=== PATIENT | female | born 1955 | race Caucasian/White ===

== ENCOUNTER → 2022-02-25 12:06 | Outpatient (CLI) | payer MEDICARE, OTHER, SELFPAY ==
--- NOTE | 2022-02-25 12:19 | DI.RAD.S_ITS ---
PROCEDURE: XR CHEST 2V INDICATIONS: SHORT OF BREATH TECHNIQUE: 2 views of the chest were acquired. COMPARISON: [facility], , CHEST 1 VIEW, 03/03/2017, 11:17. FINDINGS: Surgical changes and devices: There is a right Port-A-Cath, the tip of which is projected over the lower SVC. Lungs and pleura: There is a moderate-sized right sub pulmonic effusion. Fluid is also visualized within the horizontal fissure. There is likely compressive atelectasis or consolidation at the right lung base. The left lung is clear. Mediastinum: Mediastinal contours are normal. Heart size is normal. Bones and chest wall: No suspicious bony abnormalities. Soft tissues appear unremarkable. IMPRESSION: Right pleural effusion with consolidation or atelectasis at the right lung base. Dictated by: Linda Hernandez M.D. on 02/25/2022 at 13:16 Approved by: Linda Hernandez M.D. on 02/25/2022 at 13:17
== END ==
PROVIDERS: PCP Internal Medicine; Referring Provider Obstetrics & Gynecology Gynecologic Oncology; Visit Provider Obstetrics & Gynecology Gynecologic Oncology
DX: C56.3 Malignant neoplasm of bilateral ovaries (principal); R06.02 Shortness of breath; J90 Pleural effusion, not elsewhere classified
CPT/HCPCS: 71046

== ENCOUNTER 2023-02-18 15:36 | Inpatient (IN) | payer MEDICARE, OTHER, SELFPAY ==
[2023-02-18] VITALS (28 sets, daily range): BP systolic 92–150; BP diastolic 64–86; PULSE 84–120; RESP 15–29; TEMP 36.1–36.9; O2SAT 79–100; BMI 22.3
[2023-02-18 17:47] LABS: Add Manual Diff / Slide Review NO; Basophils Absolute Auto 200 /uL (0-100); Basophils Percent Auto 0.8 % (0-2); Eosinophils Absolute Auto 0 /uL (0-450); Eosinophils Percent Auto 0.1 % (2-4); Hematocrit 41.3 % (36-46); Hemoglobin 13.8 g/dL (12.0-16.0); Lymphocytes Absolute Auto 200 /uL (1100-4500); Lymphocytes Percent Auto 1.1 % (25-40); Mean Corpuscular HGB Conc 33.3 % (30-36); Mean Corpuscular Hemoglobin 31.4 PG (26-34); Mean Corpuscular Volume 94.1 fL (80-100); Monocytes Absolute Auto 1000 /uL (0-900); Neutrophils Absolute Auto 18100 /uL (1500-7000); Platelet Count 438 X10^3/uL (150-400); Red Blood Cell Count 4.39 X10^6/uL (4.0-5.2); Red Cell Distribution Width 16.9 % (11.6-14.8); White Blood Cell Count 19.4 X10^3/uL (4.5-11.0)
[2023-02-18 17:50] LABS: Alanine Aminotransferase 29 IU/L (<35); Albumin 3.5 g/dL (3.5-5.0); Albumin Globulin Ratio 1.2 (1.0-2.8); Alkaline Phosphatase 304 U/L (38-126); Aspartate Aminotransferase 63 IU/L (14-36); BUN Creatinine Ratio 32.3 (6-22); Bilirubin Total 0.7 mg/dL (0.2-1.3); Blood Urea Nitrogen 40 mg/dL (7-17); Calcium 9.3 mg/dL (8.4-10.2); Carbon Dioxide 29 mmol/L (22-32); Chloride 81 mmol/L (98-107); Estimated Glomerular Filt Rate 47 mL/min (>60); Glucose 69 mg/dL (80-110); HEMOLYSIS < 15 (0-50); Lipase 28 U/L (23-300); Total Protein 6.5 g/dL (6.3-8.2)
[2023-02-18] MEDS: HYDROMORPHONE 1 MG INJ IV (17:56)
[2023-02-18] MEDS: ONDANSETRON 4 MG/2 ML INJ IV ×2 (17:57→23:27)
[2023-02-18] MEDS: SODIUM CHLORIDE 0.9% 1,000 ML 1000 ML IV (17:57)
[2023-02-18 18:11] LABS: Lactate (Lactic Acid) 1.9 mmol/L (0.7-2.1)
[2023-02-18 18:15] LABS: Potassium 6.2 mmol/L (3.4-5.1); Sodium 119 mmol/L (137-145)
--- NOTE | 2023-02-18 18:26 | DI.CT.S_ITS ---
PROCEDURE: CT ABDOMEN PELVIS W CON INDICATIONS: Abdominal pain TECHNIQUE: After the administration of intravenous contrast, axial sections acquired from the lung bases to the pubic symphysis. Coronal and sagittal reformats were performed. For radiation dose reduction, the following was used: automated exposure control, adjustment of mA and/or kV according to patient size. COMPARISON: None. FINDINGS: Image quality: Excellent. Lung bases: Diffuse bibasilar interstitial thickening, irregular circumferential right pleural thickening, small left pleural effusion. Chest tube in place along the right lung base. Heart: No significant findings. ABDOMEN: Liver: Indistinct hypodensity posterior to the gallbladder in segment five measuring roughly 2.4 cm. Tiny segment seven hypodensity, probably a cyst. Gallbladder: Diffuse gallbladder wall thickening and significant mucosal hyperemia. No visible calcifications. Biliary ducts: Nondilated. Pancreas: Normal. Spleen: A few peripheral hypodensities in the spleen in the superior pole. Adrenal Glands: No significant masses. Kidneys and Ureters: Mild right hydronephrosis and slight right hydroureter. This extends to the level of the low pelvis where it is not well seen due to streak artifact. The left kidney enhances normally and there is no hydronephrosis. Stomach and Bowel: Stomach is within normal limits. There is dilated proximal jejunal loops in the left upper quadrant and fluid-filled prominent proximal small bowel. No definite transition point. Increased quantity of semi solid, mildly hyperdense stool throughout the colon, particularly in the left upper quadrant. There is circumferential wall thickening and serosal surface irregularity involving the sigmoid colon, nonspecific. Peritoneum: Diffuse peritoneal surface thickening, enhancement, moderate quantity of ascites, and omental caking. No free intraperitoneal air. . Ventral Wall: No hernias. Abdominal Nodes: Numerous small mesenteric nodes and calcifications. Vessels: Aorta and inferior vena cava are normal in size. PELVIS: Pelvic Organs: Suboptimally seen due to streak artifact from bilateral hip arthroplasties. Bladder: Not well seen. Pelvic Nodes: No enlarged lymph nodes. Miscellaneous: Diffuse anasarca of the body wall. Bones: Bilateral hip arthroplasties. No suspicious lesions. IMPRESSION: 1. Enteritis, ileus, partial obstruction resulting in dilatation of proximal jejunal loops. 2. Findings of diffuse intraperitoneal metastatic disease including ascites, omental caking, and peritoneal wall enhancement. 3. Unusual appearance of the gallbladder including mucosal hyperenhancement may be secondary to the presence of irritating ascites fluid versus cholecystitis. Consider right upper quadrant ultrasound if pain is localized to the right upper quadrant. 4. Possible liver metastasis. 5. Bilateral pleural effusions and abnormal bilateral pleural thickening, right greater than left with a pleural drainage tube in place. 6. Mild right hydronephrosis and hydroureter of uncertain etiology given suboptimal visualization of the right distal ureter. Dictated by: Alla García M.D. on 02/18/2023 at 19:41 Approved by: Alla García M.D. on 02/18/2023 at 19:53
--- NOTE | 2023-02-18 18:26 | DI.CT.S_ITS ---
PROCEDURE: CT ANGIO CHEST PE PROTOCOL INDICATIONS: shortness of air TECHNIQUE: After the administration of intravenous contrast, 2 mm thick sections acquired from the pulmonary apices to the posterior costophrenic angles. 3-dimensional maximum intensity projection (MIP) coronal and sagittal reformats were then acquired through the thorax. For radiation dose reduction, the following was used: automated exposure control, adjustment of mA and/or kV according to patient size. COMPARISON: None. FINDINGS: Image quality: Excellent. Pulmonary arteries: Pulmonary arteries are normal in size, and demonstrate no intraluminal filling defects to suggest central pulmonary embolism. Lungs and pleura: Irregular pleural thickening throughout the right lung circumferentially. Drained, very small right pleural effusion with chest tube in place. Small left pleural effusion. There is extensive reticulonodular pattern and interstitial thickening throughout the lungs, right worse than left. Peripheral patchy opacity along the fissures and posteriorly in the right lung. Small irregular scattered patchy nodules are present occasionally in the left upper lobe. No pneumothorax. Mediastinum: Normal heart size. No pericardial effusion. There is adenopathy of the right mediastinum, right hilar region, infrahilar region. The esophagus is within normal limits. Bones and chest wall: Bilateral axillary adenopathy. Right MediPort is present in the chest. There is diffuse chest wall anasarca. No visible bone lesions. Abdomen: Please see separately dictated report. IMPRESSION: 1. Extensive metastatic disease in the chest including lymphangitic spread of tumor diffusely, circumferential right pleural thickening, bilateral pleural effusions, right drained, left small to moderate size. 2. Bilateral axillary, mediastinal, and hilar adenopathy. 3. No pulmonary embolus. Dictated by: Alla García M.D. on 02/18/2023 at 19:54 Approved by: Alla García M.D. on 02/18/2023 at 19:59
--- NOTE | 2023-02-18 18:26 | ED.ABDPAIN ---
HPI - Abdominal Pain General Chief Complaint: Abdominal Pain Stated Complaint: GI blockage Time Seen by Provider: 02/18/23 17:47 History of Present Illness HPI narrative: Patient brought here by for complaints of abdominal pain shortness of breath. Patient has history ovarian cancer advanced stage with med stasis to the chest. Patient and have initiated to start hospice care. Patient discontinued chemotherapy about 6 or 7 weeks ago. Seven days ago had decreased bowel movement and stool output. Has had nausea and vomiting for the past 2 days. Patient has become very tired and fatigued and weak. No cough cold or congestion. Patient is on chronic nasal cannula oxygen ranging be 2-5 L. This was approved by her title i instructional assistant. All of her care is with [facility] oncology. The hospice care did call them back today just as they were arriving to the hospital. They do desire admission here and get case management and social work involved to start and initiate hospice care. Related Data Home Medications Medication Instructions Recorded Confirmed apixaban 5 mg tablet (Eliquis) 5 mg PO DAILY 02/18/23 02/18/23 dexmethylphenidate 10 mg tablet 10 mg PO DAILY 02/18/23 02/18/23 furosemide 40 mg tablet 40 mg PO DAILY 02/18/23 02/18/23 gabapentin 300 mg capsule 300 mg PO TID 02/18/23 02/18/23 omeprazole 20 mg capsule,delayed 20 mg PO DAILY 02/18/23 02/18/23 release pilocarpine HCl 5 mg tablet 5 mg PO BID 02/18/23 02/18/23 potassium chloride 20 mEq 40 meq PO DAILY 02/18/23 02/18/23 tablet,extended release(part/cryst) prednisone 10 mg tablet 10 mg PO DAILY 02/18/23 02/18/23 trazodone 100 mg tablet 100 mg PO BEDTIME 02/18/23 02/18/23 venlafaxine 75 mg capsule,extended 75 mg PO DAILY 02/18/23 02/18/23 release 24 hr Previous Rx's Medication Instructions Recorded hydromorphone 2 mg tablet 2 mg PO Q2HR PRN pain #30 tabs 02/23/23 Allergies Allergy/AdvReac Type Severity Reaction Status Date / Time No Known Drug Allergies Allergy Verified 02/19/23 10:53 Review of Systems Review of Systems Narrative: GENERAL: negative chills, positive fatigue, malaise, negative fever, sweats. HEENT: negative sinus pain, ear pain, sore throat RESPIRATORY: Positive dyspnea, negative cough CARDIOVASCULAR: negative chest pain, palpitations GASTROINTESTINAL: Positive nausea, vomiting, abdominal pain : negative dysuria, frequency, hematuria MUSCULOSKELETAL: negative muscle or bony pain SKIN: negative rash, skin lesions NEUROLOGIC: negative weakness, numbness Patient History Social History household members: spouse Smoking Status: Never smoker alcohol intake: current Smoking Status: Never smoker alcohol intake frequency: 0-2 drinks per day Substance Use Type: does not use Exam Narrative Exam Narrative: GENERAL: in no distress, not toxic not dyspneic HEAD: Normocephalic. EYES: Pupils equal round ENT: Mucous membranes moist. NECK: Trachea midline. CARDIOVASCULAR: Tachycardia with Regular rate and rhythm without murmurs RESPIRATORY: Clear to auscultation. Breath sounds equal bilaterally. Mild bilateral upper wheezes, no rales, or rhonchi. Patient in no respiratory distress. Speaking full sentences without difficulty. GASTROINTESTINAL: Abdomen soft, non-tender, having mildly distended. No peritoneal signs, bowel sounds present. EXTREMITIES: No gross deformities. BACK: No flank tenderness. NEURO: AOx4. SKIN: Warm and dry PSYCH: Not anxious, is cooperative Initial Vital Signs Initial Vital Signs: Vital Signs Temperature 98.4 F 02/18/23 15:42 Pulse Rate 120 H 02/18/23 15:42 Respiratory Rate 22 02/18/23 15:42 Blood Pressure 121/79 02/18/23 15:42 Pulse Oximetry 94 02/18/23 15:42 Oxygen Delivery Method Nasal Cannula 02/18/23 15:42 Oxygen Flow Rate 4 02/18/23 15:42 Course Orders Ordered: Discontinued Medications Acetaminophen (Acetaminophen 325 Mg Tablet) 650 mg PO Q6H PRN PRN Reason: Fever/Mild Pain (1-3) Albuterol (Albuterol 2.5 Mg/3 Ml Neb (Adult)) 2.5 mg INH NOW ONE Stop: 02/18/23 18:33 Last Admin: 02/18/23 18:41 Dose: 2.5 mg Documented By: SAT Albuterol (Albuterol 2.5 Mg/3 Ml Neb (Adult)) 2.5 mg INH [id number] PRN PRN Reason: Shortness Of Breath Last Admin: 02/22/23 20:17 Dose: 2.5 mg Documented By: BRYANT Apixaban (Apixaban 5 Mg Tablet) 5 mg PO DAILY [facility] Apixaban (Apixaban 5 Mg Tablet) 5 mg PO BID [facility] Last Admin: 02/23/23 09:01 Dose: 5 mg Documented By: Admin: 02/22/23 22:27 Dose: Not Given Documented By: Admin: 02/22/23 08:23 Dose: 5 mg Documented By: Admin: 02/21/23 21:46 Dose: 5 mg Documented By: Admin: 02/21/23 09:09 Dose: 5 mg Documented By: Admin: 02/20/23 21:57 Dose: 5 mg Documented By: Admin: 02/20/23 08:25 Dose: 5 mg Documented By: Admin: 02/19/23 21:07 Dose: 5 mg Documented By: CECELIA Calcium Carbonate (Calcium Carbonate 500 Mg Tab) 500 mg PO Q8HR JOSS Calcium Carbonate (Calcium Carbonate 500 Mg Tab) 500 mg PO Q8HR PRN PRN Reason: Heartburn Last Admin: 02/19/23 18:45 Dose: 500 mg Documented By: GARY Gabapentin (Gabapentin 300 Mg Capsule) 300 mg PO TID [facility] Last Admin: 02/23/23 14:56 Dose: 300 mg Documented By: Admin: 02/23/23 09:01 Dose: 300 mg Documented By: Admin: 02/22/23 22:27 Dose: Not Given Documented By: Admin: 02/22/23 16:00 Dose: Not Given Documented By: Admin: 02/22/23 08:24 Dose: 300 mg Documented By: Admin: 02/21/23 21:45 Dose: 300 mg Documented By: Admin: 02/21/23 15:56 Dose: 300 mg Documented By: Admin: 02/21/23 09:09 Dose: 300 mg Documented By: Admin: 02/20/23 21:58 Dose: 300 mg Documented By: Admin: 02/20/23 14:17 Dose: 300 mg Documented By: J CARLOS Admin: 02/20/23 08:25 Dose: 300 mg Documented By: Admin: 02/19/23 21:07 Dose: 300 mg Documented By: Admin: 02/19/23 14:01 Dose: 300 mg Documented By: Admin: 02/19/23 08:22 Dose: 300 mg Documented By: GARY Hydromorphone HCl (Hydromorphone 1 Mg Inj) 1 mg IV NOW ONE Stop: 02/18/23 17:49 Last Admin: 02/18/23 17:56 Dose: 1 mg Documented By: RB Hydromorphone HCl (Hydromorphone 4 Mg Tablet) 4 mg PO Q4HR PRN PRN Reason: Pain, Severe (7-10) Last Admin: 02/23/23 12:13 Dose: 4 mg Documented By: KATHLEEN Hydromorphone HCl (Hydromorphone 0.5 Mg Inj) 0.5 mg IV Q2H PRN PRN Reason: Pain, Severe (7-10) Last Admin: 02/22/23 13:09 Dose: 0.5 mg Documented By: Admin: 02/22/23 10:48 Dose: 0.5 mg Documented By: Admin: 02/22/23 08:42 Dose: 0.5 mg Documented By: LDIrving Admin: 02/21/23 19:54 Dose: 0.5 mg Documented By: Admin: 02/21/23 16:00 Dose: 0.5 mg Documented By: Admin: 02/21/23 12:04 Dose: 0.5 mg Documented By: Admin: 02/21/23 05:05 Dose: 0.5 mg Documented By: Admin: 02/20/23 18:45 Dose: 0.5 mg Documented By: J CARLOS Admin: 02/20/23 11:45 Dose: 0.5 mg Documented By: J CARLOS Admin: 02/20/23 05:04 Dose: 0.5 mg Documented By: Admin: 02/19/23 10:10 Dose: 0.5 mg Documented By: Admin: 02/19/23 08:04 Dose: 0.5 mg Documented By: Admin: 02/18/23 23:27 Dose: 0.5 mg Documented By: (2) Hydromorphone HCl (Hydromorphone 0.5 Mg Inj) 0.5 mg IV 0000,0300,0600,0900,2100 JOSS Last Admin: 02/23/23 14:56 Dose: 0.5 mg Documented By: Admin: 02/23/23 09:05 Dose: 0.5 mg Documented By: Admin: 02/23/23 05:20 Dose: 0.5 mg Documented By: Admin: 02/23/23 05:19 Dose: Not Given Documented By: Admin: 02/23/23 01:31 Dose: 0.5 mg Documented By: Admin: 02/22/23 22:27 Dose: Not Given Documented By: AM Hydromorphone HCl (Hydromorphone 0.5 Mg Inj) 0.5 mg IV 1100,1300,1500,1700,1900 [facility] Last Admin: 02/23/23 15:03 Dose: Not Given Documented By: Admin: 02/23/23 13:05 Dose: Not Given Documented By: Admin: 02/23/23 12:07 Dose: Not Given Documented By: Admin: 02/22/23 20:04 Dose: 0.5 mg Documented By: Admin: 02/22/23 17:19 Dose: 0.5 mg Documented By: Admin: 02/22/23 16:00 Dose: Not Given Documented By: LDV Sodium Chloride (Normal Saline 0.9%) 1,000 mls @ 1,000 mls/hr IV BOLUS ONE Stop: 02/18/23 18:48 Last Infusion: 02/18/23 19:30 Dose: 0 mls/hr Documented By: Infusion: 02/18/23 19:14 Dose: 1,000 mls/hr Documented By: Infusion: 02/18/23 18:40 Dose: 0 mls/hr Documented By: Admin: 02/18/23 17:57 Dose: 1,000 mls/hr Documented By: RB Sodium Chloride (Normal Saline 0.9%) 1,000 mls @ 100 mls/hr IV CONT JOSS Last Admin: 02/18/23 23:20 Dose: 100 mls/hr Documented By: MS(2) Sodium Chloride (Hypertonic Saline 3%) 100 mls @ 20 mls/hr IV NOW ONE Stop: 02/20/23 16:17 Last Admin: 02/20/23 11:43 Dose: 20 mls/hr Documented By: KDK Sodium Chloride (Hypertonic Saline 3%) 100 mls @ 29 mls/hr IV NOW ONE Stop: 02/20/23 20:53 Last Infusion: 02/20/23 22:10 Dose: 0 mls/hr Documented By: Admin: 02/20/23 18:39 Dose: 29 mls/hr Documented By: J CARLOS Sodium Chloride (Hypertonic Saline 3%) 100 mls @ 29 mls/hr IV NOW JOSS Last Infusion: 02/21/23 13:41 Dose: 29 mls/hr Documented By: Admin: 02/21/23 09:35 Dose: 29 mls/hr Documented By: GARY Sodium Chloride (Hypertonic Saline 3%) 500 mls @ 29 mls/hr IV CONT JOSS Last Admin: 02/23/23 06:45 Dose: 29 mls/hr Documented By: Infusion: 02/23/23 06:25 Dose: 29 mls/hr Documented By: Admin: 02/22/23 13:10 Dose: 29 mls/hr Documented By: Infusion: 02/22/23 06:56 Dose: 29 mls/hr Documented By: Admin: 02/21/23 13:41 Dose: 29 mls/hr Documented By: GARY Sodium Chloride (Normal Saline 0.9%) 500 mls @ 500 mls/hr IV BOLUS ONE Stop: 02/23/23 13:01 Last Admin: 02/23/23 13:06 Dose: 500 mls/hr Documented By: KATHLEEN Naloxone HCl (Naloxone 0.4 Mg/Ml Vial) 0.2 mg IV Q2MIN PRN PRN Reason: Opiate Reversal Non-Formulary: Dexmethylphenidate 10 Mg Tablet 10 mg PO DAILY [facility] Last Admin: 02/20/23 09:31 Dose: Not Given Documented By: Admin: 02/19/23 08:28 Dose: Not Given Documented By: GARY Nf - Pilocarpine Hcl (5 Mg Tablet) 5 mg PO BID [facility] Last Admin: 02/23/23 09:02 Dose: 5 mg Documented By: Admin: 02/22/23 22:28 Dose: Not Given Documented By: Admin: 02/22/23 08:25 Dose: Not Given Documented By: Admin: 02/21/23 21:48 Dose: Not Given Documented By: Admin: 02/21/23 09:00 Dose: Not Given Documented By: Admin: 02/20/23 21:57 Dose: Not Given Documented By: Admin: 02/20/23 09:31 Dose: Not Given Documented By: Admin: 02/19/23 21:14 Dose: Not Given Documented By: Admin: 02/19/23 08:28 Dose: Not Given Documented By: GARY Nf - Dexmethylphenidate 5 Mg Tablet 5 mg PO TID JOSS Last Admin: 02/23/23 14:34 Dose: Not Given Documented By: Admin: 02/23/23 09:02 Dose: 5 mg Documented By: Admin: 02/22/23 22:27 Dose: Not Given Documented By: Admin: 02/22/23 16:00 Dose: Not Given Documented By: Admin: 02/22/23 08:23 Dose: 5 mg Documented By: Admin: 02/21/23 21:47 Dose: Not Given Documented By: Admin: 02/21/23 16:00 Dose: Not Given Documented By: Admin: 02/21/23 09:12 Dose: 5 mg Documented By: Admin: 02/20/23 21:58 Dose: Not Given Documented By: SIERRA Ondansetron HCl (Ondansetron 4 Mg/2 Ml Inj) 4 mg IV NOW PRN PRN Reason: Nausea And Vomiting Last Admin: 02/18/23 17:57 Dose: 4 mg Documented By: BRYSON Ondansetron HCl (Ondansetron 4 Mg/2 Ml Inj) 4 mg IV Q8HR PRN PRN Reason: Nausea And Vomiting Last Admin: 02/19/23 08:21 Dose: 4 mg Documented By: Admin: 02/18/23 23:27 Dose: 4 mg Documented By: (2) Ondansetron HCl (Ondansetron 4 Mg/2 Ml Inj) 4 mg IV Q4HR PRN PRN Reason: Nausea And Vomiting Last Admin: 02/23/23 12:13 Dose: 4 mg Documented By: Admin: 02/22/23 20:04 Dose: 4 mg Documented By: Admin: 02/19/23 14:04 Dose: 4 mg Documented By: GARY Pantoprazole Sodium (Pantoprazole Dr 20 Mg Tablet) 20 mg PO 0600 JOSS Last Admin: 02/23/23 05:20 Dose: 20 mg Documented By: Admin: 02/22/23 05:06 Dose: 20 mg Documented By: Admin: 02/21/23 05:37 Dose: Not Given Documented By: Admin: 02/20/23 05:10 Dose: 20 mg Documented By: CECELIA Polyethylene Glycol (Polyethylene Glycol 3350 17 Gm Powd.Pack) 17 gm PO DAILY [facility] Last Admin: 02/23/23 09:01 Dose: 17 gm Documented By: Admin: 02/22/23 08:24 Dose: 17 gm Documented By: Admin: 02/21/23 09:09 Dose: 17 gm Documented By: Admin: 02/20/23 08:24 Dose: 17 gm Documented By: Admin: 02/19/23 11:40 Dose: 17 gm Documented By: GARY Prednisone (Prednisone 5 Mg Tablet) 10 mg PO DAILY [facility] Last Admin: 02/23/23 09:01 Dose: 10 mg Documented By: Admin: 02/22/23 08:24 Dose: 10 mg Documented By: Admin: 02/21/23 09:09 Dose: 10 mg Documented By: Admin: 02/20/23 08:24 Dose: 10 mg Documented By: Admin: 02/19/23 08:22 Dose: 10 mg Documented By: GARY Prochlorperazine (Prochlorperazine 10 Mg/2 Ml Vial) 5 mg IV Q6HR PRN PRN Reason: Nausea Last Admin: 02/21/23 05:05 Dose: 5 mg Documented By: Admin: 02/19/23 18:35 Dose: 5 mg Documented By: GARY Sennosides (Sennosides 8.6 Mg Tablet) 17.2 mg PO DAILY PRN PRN Reason: Constipation Last Admin: 02/22/23 08:24 Dose: 17.2 mg Documented By: Admin: 02/21/23 22:14 Dose: 17.2 mg Documented By: Admin: 02/20/23 22:45 Dose: 17.2 mg Documented By: SIERRA Sodium Chloride (Sodium Chloride 0.9% Flush) 10 ml IV PRN PRN PRN Reason: Flush Last Admin: 02/23/23 01:31 Dose: 10 ml Documented By: Admin: 02/21/23 05:07 Dose: 10 ml Documented By: Admin: 02/20/23 05:04 Dose: 10 ml Documented By: CECELIA Sodium Chloride (Sodium Chloride 0.9% Flush) 10 ml IV BID [facility] Last Admin: 02/23/23 09:02 Dose: 10 ml Documented By: Admin: 02/22/23 20:05 Dose: 10 ml Documented By: Admin: 02/22/23 08:24 Dose: 10 ml Documented By: Admin: 02/21/23 22:00 Dose: 10 ml Documented By: Admin: 02/21/23 09:15 Dose: 10 ml Documented By: Admin: 02/20/23 21:57 Dose: 10 ml Documented By: Admin: 02/20/23 11:05 Dose: 10 ml Documented By: RAFI Trazodone HCl (Trazodone 50 Mg Tablet) 100 mg PO BEDTIME [facility] Admin: 02/22/23 22:28 Dose: Not Given Documented By: Admin: 02/21/23 21:46 Dose: 100 mg Documented By: Admin: 02/20/23 21:57 Dose: 100 mg Documented By: Admin: 02/19/23 21:07 Dose: 100 mg Documented By: CECELIA Venlafaxine HCl (Venlafaxine Er 75 Mg Cap) 75 mg PO DAILY [facility] Admin: 02/23/23 09:01 Dose: 75 mg Documented By: Admin: 02/22/23 08:24 Dose: 75 mg Documented By: Admin: 02/21/23 09:09 Dose: 75 mg Documented By: Admin: 02/20/23 08:25 Dose: 75 mg Documented By: Admin: 02/19/23 08:22 Dose: 75 mg Documented By: GARY Vital Signs Vital signs: Vital Signs - 8 hr 02/18/23 15:42 02/18/23 16:45 02/18/23 16:47 Temperature 98.4 F Pulse Rate 120 H 114 H Respiratory Rate 22 Blood Pressure 121/79 117/77 Pulse Oximetry 94 96 Oxygen Delivery Method Nasal Cannula Oxygen Flow Rate 4 02/18/23 16:47 02/18/23 17:00 02/18/23 17:00 Temperature Pulse Rate 113 H 110 H Respiratory Rate 22 Blood Pressure 121/76 Pulse Oximetry 99 98 Oxygen Delivery Method Oxygen Flow Rate 02/18/23 17:15 02/18/23 17:30 02/18/23 17:30 Temperature Pulse Rate 114 H 115 H Respiratory Rate Blood Pressure 115/75 Pulse Oximetry 96 95 Oxygen Delivery Method Oxygen Flow Rate 02/18/23 17:45 02/18/23 18:00 02/18/23 18:00 Temperature Pulse Rate 114 H 109 H Respiratory Rate 23 Blood Pressure 118/86 Pulse Oximetry 96 96 Oxygen Delivery Method Oxygen Flow Rate 02/18/23 18:15 02/18/23 18:16 02/18/23 18:16 Temperature Pulse Rate 106 H 106 H Respiratory Rate 21 27 H Blood Pressure 92/64 Pulse Oximetry 96 96 Oxygen Delivery Method Oxygen Flow Rate 02/18/23 18:30 02/18/23 19:00 02/18/23 19:15 Temperature Pulse Rate 104 H 107 H 100 H Respiratory Rate 25 H 28 H Blood Pressure Pulse Oximetry 96 91 92 Oxygen Delivery Method Oxygen Flow Rate 02/18/23 19:25 02/18/23 19:25 02/18/23 19:30 Temperature Pulse Rate 100 H Respiratory Rate 19 Blood Pressure 134/83 130/79 Pulse Oximetry 100 Oxygen Delivery Method Oxygen Flow Rate 02/18/23 19:30 02/18/23 19:49 02/18/23 19:50 Temperature Pulse Rate 100 H 104 H Respiratory Rate 24 28 H Blood Pressure 136/78 Pulse Oximetry 99 79 L Oxygen Delivery Method Oxygen Flow Rate 02/18/23 19:50 02/18/23 20:00 02/18/23 20:00 Temperature Pulse Rate 104 H 101 H Respiratory Rate 22 24 Blood Pressure 119/73 Pulse Oximetry 89 L 95 Oxygen Delivery Method Oxygen Flow Rate 02/18/23 20:15 02/18/23 20:30 02/18/23 20:30 Temperature Pulse Rate 101 H 100 H Respiratory Rate 27 H 18 Blood Pressure 119/86 Pulse Oximetry 94 94 Oxygen Delivery Method Oxygen Flow Rate 02/18/23 20:45 02/18/23 21:00 02/18/23 21:00 Temperature Pulse Rate 101 H 99 H Respiratory Rate 22 17 Blood Pressure 150/84 H Pulse Oximetry 95 94 Oxygen Delivery Method Oxygen Flow Rate 02/18/23 21:15 02/18/23 21:30 Temperature Pulse Rate 106 H 99 H Respiratory Rate 29 H 21 Blood Pressure Pulse Oximetry 94 96 Oxygen Delivery Method Oxygen Flow Rate MDM - Abdominal Pain Lab Data 02/23/23 11:20 02/23/23 11:20 Labs: Lab Results 05/02/18/23 02/18/23 Range/Units 17:10 17:10 17:10 WBC 19.4 H (4.5-11.0) X10^3/uL RBC 4.39 (4.0-5.2) X10^6/uL Hgb 13.8 (12.0-16.0) g/dL Hct 41.3 (36-46) % MCV 94.1 (80-100) fL MCH 31.4 (26-34) PG MCHC 33.3 (30-36) % RDW 16.9 H (11.6-14.8) % Plt Count 438 H (150-400) X10^3/uL Neut % (Auto) 93.0 H (50-75) % Lymph % (Auto) 1.1 L (25-40) % [place] % (Auto) 5.0 (3-14) % Eos % (Auto) 0.1 L (2-4) % Baso % (Auto) 0.8 (0-2) % Neut # (Auto) 71943 H (5132-9021) /uL Lymph # (Auto) 200 L (7011-0860) /uL [place] # (Auto) 1000 H (0-900) /uL Eos # (Auto) 0 (0-450) /uL Baso # (Auto) 200 H (0-100) /uL Sodium 119 L* (137-145) mmol/L Potassium 6.2 H (3.4-5.1) mmol/L Chloride 81 L (98-107) mmol/L Carbon Dioxide 29 (22-32) mmol/L BUN 40 H (7-17) mg/dL Creatinine 1.24 H (0.52-1.04) mg/dL Estimated GFR 47 L (>60) mL/min BUN/Creatinine Ratio 32.3 H (6-22) Glucose 69 L (80-110) mg/dL Lactate 1.9 (0.7-2.1) mmol/L Calcium 9.3 (8.4-10.2) mg/dL Magnesium (1.6-2.3) mg/dL Total Bilirubin 0.7 (0.2-1.3) mg/dL AST 63 H (14-36) IU/L ALT 29 (<35) IU/L Alkaline Phosphatase 304 H (38-126) U/L Total Protein 6.5 (6.3-8.2) g/dL Albumin 3.5 (3.5-5.0) g/dL Globulin 3.0 (1.7-4.1) g/dL Albumin/Globulin Ratio 1.2 (1.0-2.8) Lipase 28 (23-300) U/L Procalcitonin (<0.5) ng/mL Urine RBC (0-5/HPF) Urine WBC (0-5/HPF) Urine Bacteria (None) Ur Culture Indicated? SARS-CoV-2 (PCR) (Negative) 02/18/23 02/18/23 02/18/23 Range/Units 17:10 17:10 19:31 WBC (4.5-11.0) X10^3/uL RBC (4.0-5.2) X10^6/uL Hgb (12.0-16.0) g/dL Hct (36-46) % MCV (80-100) fL MCH (26-34) PG MCHC (30-36) % RDW (11.6-14.8) % Plt Count (150-400) X10^3/uL Neut % (Auto) (50-75) % Lymph % (Auto) (25-40) % [place] % (Auto) (3-14) % Eos % (Auto) (2-4) % Baso % (Auto) (0-2) % Neut # (Auto) (3341-2379) /uL Lymph # (Auto) (5984-5530) /uL [place] # (Auto) (0-900) /uL Eos # (Auto) (0-450) /uL Baso # (Auto) (0-100) /uL Sodium (137-145) mmol/L Potassium (3.4-5.1) mmol/L Chloride (98-107) mmol/L Carbon Dioxide (22-32) mmol/L BUN (7-17) mg/dL Creatinine (0.52-1.04) mg/dL Estimated GFR (>60) mL/min BUN/Creatinine Ratio (6-22) Glucose (80-110) mg/dL Lactate (0.7-2.1) mmol/L Calcium (8.4-10.2) mg/dL Magnesium 2.0 (1.6-2.3) mg/dL Total Bilirubin (0.2-1.3) mg/dL AST (14-36) IU/L ALT (<35) IU/L Alkaline Phosphatase (38-126) U/L Total Protein (6.3-8.2) g/dL Albumin (3.5-5.0) g/dL Globulin (1.7-4.1) g/dL Albumin/Globulin Ratio (1.0-2.8) Lipase (23-300) U/L Procalcitonin 0.04 (<0.5) ng/mL Urine RBC (0-5/HPF) Urine WBC (0-5/HPF) Urine Bacteria (None) Ur Culture Indicated? SARS-CoV-2 (PCR) Negative (Negative) 02/18/23 Range/Units 21:27 WBC (4.5-11.0) X10^3/uL RBC (4.0-5.2) X10^6/uL Hgb (12.0-16.0) g/dL Hct (36-46) % MCV (80-100) fL MCH (26-34) PG MCHC (30-36) % RDW (11.6-14.8) % Plt Count (150-400) X10^3/uL Neut % (Auto) (50-75) % Lymph % (Auto) (25-40) % [place] % (Auto) (3-14) % Eos % (Auto) (2-4) % Baso % (Auto) (0-2) % Neut # (Auto) (5529-8721) /uL Lymph # (Auto) (9342-3459) /uL [place] # (Auto) (0-900) /uL Eos # (Auto) (0-450) /uL Baso # (Auto) (0-100) /uL Sodium (137-145) mmol/L Potassium (3.4-5.1) mmol/L Chloride (98-107) mmol/L Carbon Dioxide (22-32) mmol/L BUN (7-17) mg/dL Creatinine (0.52-1.04) mg/dL Estimated GFR (>60) mL/min BUN/Creatinine Ratio (6-22) Glucose (80-110) mg/dL Lactate (0.7-2.1) mmol/L Calcium (8.4-10.2) mg/dL Magnesium (1.6-2.3) mg/dL Total Bilirubin (0.2-1.3) mg/dL AST (14-36) IU/L ALT (<35) IU/L Alkaline Phosphatase (38-126) U/L Total Protein (6.3-8.2) g/dL Albumin (3.5-5.0) g/dL Globulin (1.7-4.1) g/dL Albumin/Globulin Ratio (1.0-2.8) Lipase (23-300) U/L Procalcitonin (<0.5) ng/mL Urine RBC None seen (0-5/HPF) Urine WBC 1-5/hpf (0-5/HPF) Urine Bacteria None seen (None) Ur Culture Indicated? Cult not indicated SARS-CoV-2 (PCR) (Negative) Point of care testing: Urine Dip Bedside Urine Glucose Negative Bedside Urine Bilirubin - Negative Bedside Urine Ketone +/- 5 Urine Specific [place] 1.01 Bedside Urine Occult Blood - Negative Bedside Urine pH 6 Bedside Urine Protein - Negative Bedside Urine Urobilinogen - Negative Bedside Urine Nitrite - Negative Bedside Urine Leukocytes +/- [address] scan - abdomen/pelvis: Radiologist's Impression: [place] [address] CT Scan Report Signed Patient: Jamaica Cherry MR#: [id number] : 1955 Acct:[id number] Age/Sex: 67 / F Date of Service: 02/18/23 Loc: ED Accession Number: [id number] ?? Procedure: CT abdomen pelvis w con Ordering Provider: Saul Michelle MD PROCEDURE:? CT ABDOMEN PELVIS W CON ? INDICATIONS:? Abdominal pain ? TECHNIQUE:? After the administration of intravenous contrast, axial sections acquired from the lung bases to the pubic symphysis.? Coronal and sagittal reformats were performed.? For radiation dose reduction, the following was used:? automated exposure control, adjustment of mA and/or kV according to patient size.? ? COMPARISON:? None. ? FINDINGS:? Image quality:? Excellent.? ? Lung bases:? Diffuse bibasilar interstitial thickening, irregular circumferential right pleural thickening, small left pleural effusion.? Chest tube in place along the right lung base. Heart:? No significant findings. ? ABDOMEN: Liver:? Indistinct hypodensity posterior to the gallbladder in segment five measuring roughly 2.4 cm.? Tiny segment seven hypodensity, probably a cyst. Gallbladder:? Diffuse gallbladder wall thickening and significant mucosal hyperemia.? No visible calcifications. Biliary ducts:? Nondilated. Pancreas:? Normal. Spleen:? A few peripheral hypodensities in the spleen in the superior pole. Adrenal Glands:? No significant masses. Kidneys and Ureters:? Mild right hydronephrosis and slight right hydroureter.? This extends to the level of the low pelvis where it is not well seen due to streak artifact.? The left kidney enhances normally and there is no hydronephrosis. ? Stomach and Bowel:? Stomach is within normal limits.? There is dilated proximal jejunal loops in the left upper quadrant and fluid-filled prominent proximal small bowel.? No definite transition point.? Increased quantity of semi solid, mildly hyperdense stool throughout the colon, particularly in the left upper quadrant.? There is circumferential wall thickening and serosal surface irregularity involving the sigmoid colon, nonspecific. Peritoneum:? Diffuse peritoneal surface thickening, enhancement, moderate quantity of ascites, and omental caking.? No free intraperitoneal air.? . ? Ventral Wall: ? No hernias.? Abdominal Nodes:? Numerous small mesenteric nodes and calcifications. Vessels:? Aorta and inferior vena cava are normal in size.? ? PELVIS: Pelvic Organs:? Suboptimally seen due to streak artifact from bilateral hip arthroplasties. Bladder:? Not well seen. Pelvic Nodes: No enlarged lymph nodes.? Miscellaneous:? Diffuse anasarca of the body wall. ? Bones:? Bilateral hip arthroplasties.? No suspicious lesions. ? ? IMPRESSION: ? 1. Enteritis, ileus, partial obstruction resulting in dilatation of proximal jejunal loops. ? 2. Findings of diffuse intraperitoneal metastatic disease including ascites, omental caking, and peritoneal wall enhancement. ? 3. Unusual appearance of the gallbladder including mucosal hyperenhancement may be secondary to the presence of irritating ascites fluid versus cholecystitis.? Consider right upper quadrant ultrasound if pain is localized to the right upper quadrant. ? 4. Possible liver metastasis. ? 5. Bilateral pleural effusions and abnormal bilateral pleural thickening, right greater than left with a pleural drainage tube in place. ? 6. Mild right hydronephrosis and hydroureter of uncertain etiology given suboptimal visualization of the right distal ureter.? Dictated by: Alla García M.D. on 02/18/2023 at 19:41 ? ? Approved by: Alla García M.D. on 02/18/2023 at 19:53 ? CT scan - chest: Radiologist's Impression: [address] [address] [address] Scan Report Signed Patient: Jamaica Cherry MR#: [id number] : 1955 Acct:[id number] Age/Sex: 67 / F Date of Service: 02/18/23 Loc: ED Accession Number: [id number] ?? Procedure: CT angio chest PE protocol Ordering Provider: Saul Michelle MD PROCEDURE:? CT ANGIO CHEST PE PROTOCOL ? INDICATIONS:? shortness of air ? TECHNIQUE:? After the administration of intravenous contrast, 2 mm thick sections acquired from the pulmonary apices to the posterior costophrenic angles.? 3-dimensional maximum intensity projection (MIP) coronal and sagittal reformats were then acquired through the thorax.? For radiation dose reduction, the following was used:? automated exposure control, adjustment of mA and/or kV according to patient size.? ? COMPARISON:? None. ? FINDINGS:? Image quality:? Excellent.? ? Pulmonary arteries:? Pulmonary arteries are normal in size, and demonstrate no intraluminal filling defects to suggest central pulmonary embolism.? ? Lungs and pleura:? Irregular pleural thickening throughout the right lung circumferentially.? Drained, very small right pleural effusion with chest tube in place.? Small left pleural effusion.? There is extensive reticulonodular pattern and interstitial thickening throughout the lungs, right worse than left.? Peripheral patchy opacity along the fissures and posteriorly in the right lung.? Small irregular scattered patchy nodules are present occasionally in the left upper lobe.? No pneumothorax. ? Mediastinum:? Normal heart size.? No pericardial effusion.? There is adenopathy of the right mediastinum, right hilar region, infrahilar region.? The esophagus is within normal limits. ? Bones and chest wall:? Bilateral axillary adenopathy.? Right MediPort is present in the chest.? There is diffuse chest wall anasarca.? No visible bone lesions. ? Abdomen:? Please see separately dictated report. ? IMPRESSION:? ? 1. Extensive metastatic disease in the chest including lymphangitic spread of tumor diffusely, circumferential right pleural thickening, bilateral pleural effusions, right drained, left small to moderate size. ? 2. Bilateral axillary, mediastinal, and hilar adenopathy. ? 3. No pulmonary embolus.? ? ? Dictated by: Alla García M.D. on 02/18/2023 at 19:54 ? ? Approved by: Alla García M.D. on 02/18/2023 at 19:59 ? MDM Narrative Medical decision making narrative: Patient brought here by for complaints of abdominal pain shortness of breath. Patient has history ovarian cancer advanced stage with med stasis to the chest. Patient and have initiated to start hospice care. Patient discontinued chemotherapy about 6 or 7 weeks ago. Seven days ago had decreased bowel movement and stool output. Has had nausea and vomiting for the past 2 days. Patient has become very tired and fatigued and weak. No cough cold or congestion. Patient is on chronic nasal cannula oxygen ranging be 2-5 L. This was approved by her title i instructional assistant. All of her care is with [facility] oncology. The hospice care did call them back today just as they were arriving to the hospital. They do desire admission here and get case management and social work involved to start and initiate hospice care. After history and exam CBC CMP lipase EKG normal saline Zofran CT scan chest abdomen pelvis [facility] CC: Constipation shortness of breath fatigue Complicating co-morbidities: Metastatic ovarian cancer Data collected from: Patient and Medical records reviewed: No previous visits here Differential considered: Includes but not limited to metastatic cancer, pulmonary embolism, bowel obstruction, constipation, pneumonia Exam documented above, pertinent findings include: Wheezing bilateral upper lungs, distended abdomen Lab Test results independently reviewed as above. Pertinent findings: Independently reviewed EKG as above sinus tachycardia rate [address] elevation or depression Imaging studies independently reviewed: CT angiogram chest CT abdomen pelvis no PE. There is metastatic process in chest and abdomen. There is partial bowel obstruction. Consultations: 9:45 p[address] Spoke with hospitalist dr tracey, will admit Treatments: Zofran normal saline Re-evaluations: 8:22 p.m.. Reviewed results with patient. She states she does take potassium replacement pills. Due to medication interaction. She does not want surgical consult. She states she is DNR DNI with selective treatment. She does not want NG tube. Discussion: Appropriate for admission for hyponatremia and hyperkalemia and IV fluids. Reviewed with patient and desires admission. Reviewed hospitalist agrees for admit Diagnosis: Hyperkalemia hyponatremia partial bowel obstruction Discharge Plan Departure Patient Disposition: Admitted As Inpatient Clinical Impression: Partial bowel obstruction, Acute hyponatremia, Acute hyperkalemia Admit Date/Time: 02/18/23 21:45 Admit Provider: Ford Tracey
[2023-02-18 18:28] LABS: Procalcitonin 0.04 ng/mL (<0.5)
[2023-02-18] MEDS: ALBUTEROL 2.5 MG/3 ML NEB (ADULT) INH (18:41)
[2023-02-18 19:51] LABS: COVID19 -Nasal RAPID Negative (Negative)
[2023-02-18 21:41] LABS: Bacteria Urine None Seen; RBC Urine None Seen (0-5/HPF); WBC Urine 1-5/HPF (0-5/HPF)
[2023-02-18 21:43] LABS: Culture Indicated Urine Cult Not Indicated
[2023-02-18] MEDS: SODIUM CHLORIDE 0.9% 1,000 ML 100 ML IV (23:20)
[2023-02-18] MEDS: HYDROMORPHONE 0.5 MG INJ IV (23:27)
--- NOTE | 2023-02-19 01:43 | PC.NURSE ---
Addendum entered by Camille Lucas R.N. 02/19/23 01:51: [id number] Original Note: nightshift
--- NOTE | 2023-02-19 05:21 | P.HP_ITS ---
History of Present Illness History of Present Illness Date Patient Seen: 02/18/23 Time Patient Seen: 21:00 Chief complaint: GI blockage Narrative: Ms. Cherry is a 67W with PMH metastatic ovarian cancer, chronic respiratory failure on oxygen who presents to the hospital with abdominal discomfort, shortness of breath, malaise, decreased appetite, fatigue. She has known metastatic ovarian cancer, and ultimately stopped any further treatment approximately six weeks ag o. She has known mets to multiple organs. She has been referred to hospice and has had informational session, but has not joined hospice. Over the last week she has noted decline in terms worsening nausea and vomiting. She has had subjective constipation. She has felt weak and inability to get out of bed. She is chronically on oxygen at home due to mets from the cancer. She is on steroids chronically In the ED workup was done, vital notable for afebrile, heart rate in the 120s, respiratory rate 20s, blood pressure 120s/70s. Sats 94% on 4L. Labs reviewed and notable for WBC 19.4, hgb 13.8, plts 438. Na 119, k 6.2, BUN 40, creatinine 1.24. Lactate 1.9. Procal 0.04. CTA chest with extensive metastatic disease noted in chest with bilatera pleural effusions, no PE. CT abdomen/pelvis notable for partial obstruction with dilation of proximal jejunal loops, ascites and peritoneal mets, possible liver mets, and right hydronephrosis. She was ordered for IV fluids and admitted for further treatment. She was clear at time of admission she wanted no heroic measures, she was interested in being admitted to hospice. She wanted a short course of fluid resuscitation as it was helping her feel better and wanted to be discharged home soon if able. [facility] Social History household members: spouse Smoking Status: Never smoker alcohol intake: current Meds Home Medications and Allergies Home Medications Medication Instructions Recorded Confirmed Type apixaban 5 mg tablet (Eliquis) 5 mg PO DAILY 02/18/23 02/18/23 History dexmethylphenidate 10 mg tablet 10 mg PO DAILY 02/18/23 02/18/23 History furosemide 40 mg tablet 40 mg PO DAILY 02/18/23 02/18/23 History gabapentin 300 mg capsule 300 mg PO TID 02/18/23 02/18/23 History hydromorphone 2 mg tablet 2 mg PO PRN PRN Pain (Scale Score 02/18/23 02/18/23 History 4-6) omeprazole 20 mg capsule,delayed 20 mg PO DAILY 02/18/23 02/18/23 History release pilocarpine HCl 5 mg tablet 5 mg PO BID 02/18/23 02/18/23 History potassium chloride 20 mEq 40 meq PO DAILY 02/18/23 02/18/23 History tablet,extended release(part/cryst) prednisone 10 mg tablet 10 mg PO DAILY 02/18/23 02/18/23 History trazodone 100 mg tablet 100 mg PO BEDTIME 02/18/23 02/18/23 History venlafaxine 75 mg capsule,extended 75 mg PO DAILY 02/18/23 02/18/23 History release 24 hr Allergies Allergy/AdvReac Type Severity Reaction Status Date / Time No Known Allergies Allergy Uncoded 01/12/18 12:44 Review of Systems Review of Systems Narrative: 14 systems reviewed and negative aside from what is noted in HPI Exam Vital Signs (past 8 hours): - 02/18/23 21:30 02/18/23 21:45 02/18/23 22:00 Temperature Pulse Rate 99 H 100 H 98 H Respiratory Rate 21 22 15 Blood Pressure Pulse Oximetry 96 96 98 Oxygen Delivery Method Oxygen Flow Rate 02/18/23 22:18 02/18/23 21:52 02/18/23 22:29 Temperature 98 F 97.0 F L Pulse Rate 84 103 H Respiratory Rate 22 20 Blood Pressure 116/74 125/82 Pulse Oximetry 93 94 Oxygen Delivery Method Nasal Cannula Nasal Cannula Oxygen Flow Rate 4 4.5 Oxygen Delivery Method Nasal Cannula Oxygen Flow Rate 4.5 Narrative Exam Narrative: GEN: chronically ill appearing HEENT: dry mocous membranes CV: tachycardic PULM: coarse breath sounds bilaterally, absent breath sounds at bases ABD: firm, tender, no rebound/guarding NEURO: awake, alert, oriented, no focal deficits Objective Labs 02/18/23 17:10 02/18/23 17:10 Labs: Laboratory Results - last 24 hr 02/18/23 02/18/23 02/18/23 17:10 17:10 17:10 WBC 19.4 H RBC 4.39 Hgb 13.8 Hct 41.3 MCV 94.1 MCH 31.4 MCHC 33.3 RDW 16.9 H Plt Count 438 H Neut % (Auto) 93.0 H Lymph % (Auto) 1.1 L [place] % (Auto) 5.0 Eos % (Auto) 0.1 L Baso % (Auto) 0.8 Neut # (Auto) 27222 H Lymph # (Auto) 200 L [place] # (Auto) 1000 H Eos # (Auto) 0 Baso # (Auto) 200 H Sodium 119 L* Potassium 6.2 H Chloride 81 L Carbon Dioxide 29 BUN 40 H Creatinine 1.24 H Estimated GFR 47 L BUN/Creatinine Ratio 32.3 H Glucose 69 L Lactate 1.9 Calcium 9.3 Magnesium Total Bilirubin 0.7 AST 63 H ALT 29 Alkaline Phosphatase 304 H Total Protein 6.5 Albumin 3.5 Globulin 3.0 Albumin/Globulin Ratio 1.2 Lipase 28 Procalcitonin Urine RBC Urine WBC Urine Bacteria Ur Culture Indicated? SARS-CoV-2 (PCR) 02/18/23 02/18/23 02/18/23 17:10 17:10 19:31 WBC RBC Hgb Hct MCV MCH MCHC RDW Plt Count Neut % (Auto) Lymph % (Auto) [place] % (Auto) Eos % (Auto) Baso % (Auto) Neut # (Auto) Lymph # (Auto) [place] # (Auto) Eos # (Auto) Baso # (Auto) Sodium Potassium Chloride Carbon Dioxide BUN Creatinine Estimated GFR BUN/Creatinine Ratio Glucose Lactate Calcium Magnesium 2.0 Total Bilirubin AST ALT Alkaline Phosphatase Total Protein Albumin Globulin Albumin/Globulin Ratio Lipase Procalcitonin 0.04 Urine RBC Urine WBC Urine Bacteria Ur Culture Indicated? SARS-CoV-2 (PCR) Negative 02/18/23 21:27 WBC RBC Hgb Hct MCV MCH MCHC RDW Plt Count Neut % (Auto) Lymph % (Auto) [place] % (Auto) Eos % (Auto) Baso % (Auto) Neut # (Auto) Lymph # (Auto) [place] # (Auto) Eos # (Auto) Baso # (Auto) Sodium Potassium Chloride Carbon Dioxide BUN Creatinine Estimated GFR BUN/Creatinine Ratio Glucose Lactate Calcium Magnesium Total Bilirubin AST ALT Alkaline Phosphatase Total Protein Albumin Globulin Albumin/Globulin Ratio Lipase Procalcitonin Urine RBC None seen Urine WBC 1-5/hpf Urine Bacteria None seen Ur Culture Indicated? Cult not indicated SARS-CoV-2 (PCR) Assessment & Plan Assessment & Plan narrative: 1. Severe hyponatremia, hypovolemic -suspect secondary to poor oral intake -goals of care with patient include fluids, so will continue IV fluids and limit lab draws -check sodium in the am 2. Hyperkalemia -suspect secondary to potassium supplementation in setting of DANIAL -stop potassium supplementation -IV fluids as above are within goals of care 3. DANIAL -suspect secondary to hypovolemia -however mets causing hydronephrosis may be contributing -continue IV fluids and trend creatinine 4. Leukocytosis -no clear evidence of infection -procal is normal -suspect secondary to steroids -no indication for antibiotics currently, but low threshold to start 5. Metastatic ovarian cancer with mets to liver, peritoneum, lungs -patient is hospice appropriate and interested in joining hospice Dispo: Ultimately she has very specific goals of care and is desiring hospital observation for a night for fluid resuscitation and is already feeling better. If she feels improved tomorrow she prefers to go home. She is aware of her electrolyte derangements and aware that they may be secondary to her terminal illness and progressing organ failure and does not want significant heroic measures taken. I have discussed plan and obtained history from the patient. I have discussed plan of care with ED physician and bedside nurse. I have reviewed labs, imaging CODE: DNR/DNI Proxy: Adilson Griggs, spouse Quality VTE Deep Vein Thrombosis/Pulmonary Embolism Present on Admission: No MIPS - Meds 'Current medications' to include all prescriptions, [id number] products, herbals, cannabis/cannabidiol products, and vitamin/mineral/dietary (nutritional) supplements. I have utilized all available resources to obtain, update, or review the patient?s current medications. [If Yes, STOP here]: Yes
[2023-02-19 06:50] LABS: Add Manual Diff / Slide Review NO; Basophils Absolute Auto 100 /uL (0-100); Basophils Percent Auto 0.3 % (0-2); Eosinophils Absolute Auto 100 /uL (0-450); Eosinophils Percent Auto 0.4 % (2-4); Hemoglobin 12.5 g/dL (12.0-16.0); Lymphocytes Absolute Auto 200 /uL (1100-4500); Lymphocytes Percent Auto 1.1 % (25-40); Mean Corpuscular HGB Conc 32.8 % (30-36); Mean Corpuscular Hemoglobin 30.7 PG (26-34); Mean Corpuscular Volume 93.5 fL (80-100); Monocytes Absolute Auto 1100 /uL (0-900); Neutrophils Absolute Auto 14400 /uL (1500-7000); Neutrophils Percent Auto 91.2 % (50-75); Platelet Count 357 X10^3/uL (150-400); Red Blood Cell Count 4.06 X10^6/uL (4.0-5.2); White Blood Cell Count 15.8 X10^3/uL (4.5-11.0)
[2023-02-19 06:59] LABS: BUN Creatinine Ratio 35.8 (6-22); Blood Urea Nitrogen 38 mg/dL (7-17); Calcium 8.6 mg/dL (8.4-10.2); Carbon Dioxide 28 mmol/L (22-32); Chloride 86 mmol/L (98-107); Estimated Glomerular Filt Rate 57 mL/min (>60); Glucose 64 mg/dL (80-110); HEMOLYSIS < 15 (0-50); Sodium 120 mmol/L (137-145)
[2023-02-19 07:00] VITALS: O2SAT 95
[2023-02-19 07:04] LABS: Potassium 6.4 mmol/L (3.4-5.1)
[2023-02-19 08:00] VITALS: BP 141/72; PULSE 95; RESP 17; TEMP 36.2; O2SAT 95
[2023-02-19] MEDS: HYDROMORPHONE 0.5 MG INJ IV ×2 (08:04→10:10)
[2023-02-19] MEDS: ONDANSETRON 4 MG/2 ML INJ IV ×2 (08:21→14:04)
[2023-02-19] MEDS: VENLAFAXINE ER 75 MG CAP PO (08:22)
[2023-02-19] MEDS: predniSONE 5 MG TABLET 10 MG PO (08:22)
[2023-02-19] MEDS: GABAPENTIN 300 MG CAPSULE PO ×3 (08:22→21:07)
[2023-02-19 09:05] VITALS: O2SAT 95
[2023-02-19] MEDS: polyethylene glycoL 3350 17 GM POWD.PACK PO (11:40)
[2023-02-19 12:32] VITALS: BP 117/74; PULSE 93; RESP 17; TEMP 36.6; O2SAT 93
--- NOTE | 2023-02-19 12:34 | CM.DANOTE ---
Patient is a 67 yo female who was admitted on 02/18/23 for GI blockage. Pt has MCR and REG for insurance and her PCP is Sergio Hunt. EMR was reviewed. Per MD, pt with metastatic ovarian CA and stopped tx 6 weeks ago and admitted for fluids and electrolytes and plan is d/c home with Hospice. SW met bedside with pt and spouse and explained role and they confirm they live on [address] at home and both have been active and independent although the past few weeks pt has become more weak with dyspnea. Pt has home oxygen at baseline and was going to [facility] for Oncology and that is when they decided to make a referral to [facility] and they completed their Info Visit but were not quite ready for Hospice but now that pt is admitted they would like to d/c home once pt's labs have improved and would like Hospice to open for services. Pt hopeful for d/c tomorrow Sat home via spouse POV and Hospice. SW called Maci at [facility] who confirms Info Visit previously completed and she received pt's updated clinicals from her admission last night and now have pt on their schedule for liquid sugar melter in two days on 02/21/23 between [id number] pending [facility] schedule. Maci will call spouse now with this update and determine if any DME needed. Maci inquired about POLST and no current POLST scanned and she will ask spouse via phone. Spouse plans to transport, so currently no POLST required for discharge transport. Plan: SW to follow closely for plan of possible d/c home tomorrow Sat if medically stable with [facility] to open 02/21/23. VINAY Ho Discharge Planning/Care Management CM Discharge Assessment Start: 02/19/23 12:33 Freq: Status: Active Protocol: Document 02/19/23 12:33 BF (Rec: 02/19/23 12:34 BF [id number]) Discharge Planning Assessment Assigned Carpet Cutter VINAY Plummer DPOA/Assigned Designee Name spouse Adilson Griggs Contact Information [phone] Advance Directives? Yes Advance Directives on File No History Provided By Patient,Significant Other, Medical Record Has Patient been admitted in last 30 No days? Prior Living Arrangements House Household Members spouse Type of transporation used prior to Drives own vehicle admit Independent with ADL's Yes Is patient alert and oriented? Yes Needs Assistance With Managing Medications,Home Chores / Shopping Caregiver for Another No DME Already Rented / Owned FWW / Walker Barriers to Discharge No Discharge Plan Home [facility] Hospice Transportation Arrangement spouse bedside and plans to provide transport back to [facility] Referrals Initiated Other Additional Comment Updated Hospice [facility] Whiteboard Updated in Patient Room with Yes name and ext. # of Carpet Cutter Review Status In Process Please Provide Date Initial DC 02/19/23 Assessment Was Performed Next Review Type Continued Stay Review
--- NOTE | 2023-02-19 13:33 | P.PN_ITS ---
Subjective Subjective Interval history: 67 F with metastatic ovarian cancer admitted with dehydration, electrolyte abnormalities including hyponatremia and hyperkalemia. She is feeling a bit better today with fluids. She initially thought she was going to go home today with hospice, we discussed the risks and benefits of continued treatments for her hyponatremia and would like to try and feel a bit better before gonig home. She would like to continue fluids today. Exam Vital Signs (past 8 hours): - 02/19/23 08:00 02/19/23 07:00 02/19/23 09:05 Temperature 97.1 F L Pulse Rate 95 H Respiratory Rate 17 Blood Pressure 141/72 H Pulse Oximetry 95 95 95 Oxygen Delivery Method Nasal Cannula Nasal Cannula Oxygen Flow Rate 4 4 4 02/19/23 12:32 Temperature 97.8 F Pulse Rate 93 H Respiratory Rate 17 Blood Pressure 117/74 Pulse Oximetry 93 Oxygen Delivery Method Oxygen Flow Rate 4 Oxygen Delivery Method Nasal Cannula Oxygen Flow Rate 4 Narrative Exam Narrative: GEN: chronically ill appearing HEENT: dry mocous membranes CV: tachycardic PULM: coarse breath sounds bilaterally, absent breath sounds at bases ABD: firm, tender, no rebound/guarding NEURO: awake, alert, oriented, no focal deficits Objective Labs 02/19/23 06:39 02/19/23 06:39 Labs: Laboratory Results - last 24 hr 02/18/23 02/18/23 02/18/23 17:10 17:10 17:10 WBC 19.4 H RBC 4.39 Hgb 13.8 Hct 41.3 MCV 94.1 MCH 31.4 MCHC 33.3 RDW 16.9 H Plt Count 438 H Neut % (Auto) 93.0 H Lymph % (Auto) 1.1 L [place] % (Auto) 5.0 Eos % (Auto) 0.1 L Baso % (Auto) 0.8 Neut # (Auto) 81709 H Lymph # (Auto) 200 L [place] # (Auto) 1000 H Eos # (Auto) 0 Baso # (Auto) 200 H Sodium 119 L* Potassium 6.2 H Chloride 81 L Carbon Dioxide 29 BUN 40 H Creatinine 1.24 H Estimated GFR 47 L BUN/Creatinine Ratio 32.3 H Glucose 69 L Lactate 1.9 Calcium 9.3 Magnesium Total Bilirubin 0.7 AST 63 H ALT 29 Alkaline Phosphatase 304 H Total Protein 6.5 Albumin 3.5 Globulin 3.0 Albumin/Globulin Ratio 1.2 Lipase 28 Procalcitonin Urine RBC Urine WBC Urine Bacteria Ur Culture Indicated? SARS-CoV-2 (PCR) 02/18/23 02/18/23 02/18/23 17:10 17:10 19:31 WBC RBC Hgb Hct MCV MCH MCHC RDW Plt Count Neut % (Auto) Lymph % (Auto) [place] % (Auto) Eos % (Auto) Baso % (Auto) Neut # (Auto) Lymph # (Auto) [place] # (Auto) Eos # (Auto) Baso # (Auto) Sodium Potassium Chloride Carbon Dioxide BUN Creatinine Estimated GFR BUN/Creatinine Ratio Glucose Lactate Calcium Magnesium 2.0 Total Bilirubin AST ALT Alkaline Phosphatase Total Protein Albumin Globulin Albumin/Globulin Ratio Lipase Procalcitonin 0.04 Urine RBC Urine WBC Urine Bacteria Ur Culture Indicated? SARS-CoV-2 (PCR) Negative 02/18/23 02/19/23 02/19/23 21:27 06:39 06:39 WBC 15.8 H RBC 4.06 Hgb 12.5 Hct 38.0 MCV 93.5 MCH 30.7 MCHC 32.8 RDW 17.0 H Plt Count 357 Neut % (Auto) 91.2 H Lymph % (Auto) 1.1 L [place] % (Auto) 7.0 Eos % (Auto) 0.4 L Baso % (Auto) 0.3 Neut # (Auto) 07082 H Lymph # (Auto) 200 L [place] # (Auto) 1100 H Eos # (Auto) 100 Baso # (Auto) 100 Sodium 120 L Potassium 6.4 H* Chloride 86 L Carbon Dioxide 28 BUN 38 H Creatinine 1.06 H Estimated GFR 57 L BUN/Creatinine Ratio 35.8 H Glucose 64 L Lactate Calcium 8.6 Magnesium Total Bilirubin AST ALT Alkaline Phosphatase Total Protein Albumin Globulin Albumin/Globulin Ratio Lipase Procalcitonin Urine RBC None seen Urine WBC 1-5/hpf Urine Bacteria None seen Ur Culture Indicated? Cult not indicated SARS-CoV-2 (PCR) [facility] Social History household members: spouse Smoking Status: Never smoker alcohol intake: current Assessment & Plan Assessment & Plan narrative: 1. Severe hyponatremia, hypovolemic -suspect secondary to poor oral intake -goals of care with patient include fluids, so will continue IV fluids and limit lab draws to daily now. -re-check sodium in the am -may be hypoaldosteronism with combined hyperkalemia, but no acidosis on lab evaluation so more likely hypovolemia at this time. 2. Hyperkalemia -suspect secondary to potassium supplementation in setting of DANIAL -stop potassium supplementation -IV fluids as above are within goals of care 3. DANIAL -suspect secondary to hypovolemia -however mets causing hydronephrosis may be contributing, though CT shows only unilateral mild hydronephrosis on the R. -continue IV fluids and trend creatinine, improved slightly today. 4. Leukocytosis -no clear evidence of infection -procal is normal -suspect secondary to steroids -no indication for antibiotics currently, but low threshold to start 5. Metastatic ovarian cancer with mets to liver, peritoneum, lungs -patient is hospice appropriate and interested in joining hospice Dispo: Ultimately she has very specific goals of care and is desiring hospital observation for another night for fluid resuscitation and is already feeling better. If she feels improved tomorrow she prefers to go home. She is aware of her electrolyte derangements and aware that they may be secondary to her terminal illness and progressing organ failure and does not want significant heroic measures taken. CODE: DNR/DNI Proxy: Adilson Griggs, spouse Quality VTE Deep Vein Thrombosis/Pulmonary Embolism Present on Admission: No
[2023-02-19] MEDS: PROCHLORPERAZINE 10 MG/2 ML VIAL 5 MG IV (18:35)
[2023-02-19] MEDS: CALCIUM CARBONATE 500 MG TAB PO (18:45)
[2023-02-19 19:50] VITALS: O2SAT 97
[2023-02-19 20:40] VITALS: BP 126/86; PULSE 96; RESP 18; TEMP 36.4; O2SAT 97
[2023-02-19] MEDS: APIXABAN 5 MG TABLET PO (21:07)
[2023-02-19] MEDS: TRAZODONE 50 MG TABLET 100 MG PO (21:07)
[2023-02-20] MEDS: HYDROMORPHONE 0.5 MG INJ IV ×3 (05:04→18:45)
[2023-02-20] MEDS: SODIUM CHLORIDE 0.9% FLUSH 10 ML IV ×3 (05:04→21:57)
[2023-02-20] MEDS: PANTOPRAZOLE DR 20 MG TABLET PO (05:10)
[2023-02-20 07:00] VITALS: O2SAT 95
[2023-02-20 08:00] VITALS: BP 109/70; PULSE 109; RESP 17; TEMP 36.2; O2SAT 94
[2023-02-20 08:11] LABS: BUN Creatinine Ratio 39.6 (6-22); Blood Urea Nitrogen 42 mg/dL (7-17); Calcium 8.9 mg/dL (8.4-10.2); Carbon Dioxide 27 mmol/L (22-32); Chloride 86 mmol/L (98-107); Estimated Glomerular Filt Rate 57 mL/min (>60); Glucose 69 mg/dL (80-110)
[2023-02-20 08:23] LABS: HEMOLYSIS 36 (0-50)
[2023-02-20] MEDS: predniSONE 5 MG TABLET 10 MG PO (08:24)
[2023-02-20] MEDS: polyethylene glycoL 3350 17 GM POWD.PACK PO (08:24)
[2023-02-20] MEDS: APIXABAN 5 MG TABLET PO ×2 (08:25→21:57)
[2023-02-20] MEDS: GABAPENTIN 300 MG CAPSULE PO ×3 (08:25→21:58)
[2023-02-20] MEDS: VENLAFAXINE ER 75 MG CAP PO (08:25)
[2023-02-20 08:28] LABS: Potassium 6.1 mmol/L (3.4-5.1)
[2023-02-20 08:32] LABS: Sodium 118 mmol/L (137-145)
[2023-02-20 10:36] VITALS: O2SAT 94
[2023-02-20 10:40] LABS: Sodium Urine Random < 5 mmol/L (30-90)
[2023-02-20] MEDS: SODIUM CHLORIDE 3 % 100 ML 20 ML IV (11:43)
[2023-02-20 16:59] LABS: BUN Creatinine Ratio 40.8 (6-22); Blood Urea Nitrogen 40 mg/dL (7-17); Calcium 8.8 mg/dL (8.4-10.2); Carbon Dioxide 19 mmol/L (22-32); Chloride 88 mmol/L (98-107); Estimated Glomerular Filt Rate > 60 mL/min (>60); Glucose 99 mg/dL (80-110)
[2023-02-20 17:16] LABS: HEMOLYSIS 64 (0-50)
[2023-02-20 17:17] LABS: Potassium 6.1 mmol/L (3.4-5.1)
[2023-02-20 17:18] LABS: Sodium 117 mmol/L (137-145)
--- NOTE | 2023-02-20 17:29 | PM.PN.1 ---
Subjective Subjective Interval history: 67 F with metastatic ovarian cancer admitted with dehydration, electrolyte abnormalities including hyponatremia and hyperkalemia. She was a bit nauseous overnight, sodium dropped lower to 118. IV fluids were stopped, urine sodium checked and was <5, urine osm is a send out, and pending. Discussed managment options with patient, agreeable to start 3%. She finished 100 cc bag at 20 cc/hr and sodium is now 117. Will up to 29 cc per hour, may need to move to ICU. Exam Vital Signs (past 8 hours): - 02/20/23 10:36 Pulse Oximetry 94 Oxygen Delivery Method Nasal Cannula Oxygen Flow Rate 4 Fraction of Inspired Oxygen 36 Fraction of Inspired Oxygen 36 SaO2/FiO2 Ratio 261 Oxygen Delivery Method Nasal Cannula Oxygen Flow Rate 4 Narrative Exam Narrative: GEN: chronically ill appearing HEENT: dry mocous membranes CV: tachycardic PULM: coarse breath sounds bilaterally, absent breath sounds at bases ABD: firm, tender, no rebound/guarding NEURO: awake, alert, oriented, no focal deficits Objective Labs 02/19/23 06:39 02/20/23 16:40 Labs: Laboratory Results - last 24 hr 02/20/23 02/20/23 02/20/23 06:25 10:00 16:40 Sodium 118 L* 117 L* Potassium 6.1 H 6.1 H Chloride 86 L 88 L Carbon Dioxide 27 19 L BUN 42 H 40 H Creatinine 1.06 H 0.98 Estimated GFR 57 L > 60 BUN/Creatinine Ratio 39.6 H 40.8 H Glucose 69 L 99 Calcium 8.9 8.8 Ur Random Sodium < 5 L PFSH Social History household members: spouse Smoking Status: Never smoker alcohol intake: current Assessment & Plan Assessment & Plan narrative: 1. Severe hyponatremia, hypovolemic -suspect secondary to poor oral intake -goals of care with patient include fluids. -Sodium fell from 120 to 118 despite continued IV fluids with NS @100 cc/hr, urine sodium rechecked and was <5 consistent with hypovolemia. Discussed further options including fluid boluses or 3% saline with patient, she elected for trial of 3%. After 3%, 20 cc over 5 hours, sodium dropped to 117. Will increase rate to 29 cc per hour. May need to move to ICU for further management and central line. -may be hypoaldosteronism with combined hyperkalemia, but no acidosis on lab evaluation so more likely hypovolemia at this time. 2. Hyperkalemia -suspect secondary to potassium supplementation in setting of DANIAL, has improved slightly today. -stop potassium supplementation -IV fluids as above are within goals of care 3. DANIAL -suspect secondary to hypovolemia -however mets causing hydronephrosis may be contributing, though CT shows only unilateral mild hydronephrosis on the R. -continue IV fluids and trend creatinine, improved slightly today again. 4. Leukocytosis -no clear evidence of infection -procal is normal -suspect secondary to steroids -no indication for antibiotics currently, but low threshold to start 5. Metastatic ovarian cancer with mets to liver, peritoneum, lungs -patient is hospice appropriate and interested in joining hospice, it is apparently opening on Wednesday. Dispo: inpatient, may need ICU for hyponatremia management. CODE: DNR/DNI Proxy: Adilson Griggs, spouse Quality VTE Deep Vein Thrombosis/Pulmonary Embolism Present on Admission: No
[2023-02-20 18:00] VITALS: BP 150/89; PULSE 105; RESP 17; TEMP 36.6; O2SAT 95
[2023-02-20] MEDS: SODIUM CHLORIDE 3 % 100 ML 29 ML IV (18:39)
--- NOTE | 2023-02-20 18:50 | PC.NURSE ---
3% ns ordered at 29ml/hr pharm. not here able to track down 500ml bag in ER ,er states that patient would need to be in icu for 3% infusion,Dr. Sen updated and states 3% on the floor is ok as long as it under 30ml/hr infusion. ok'ed patient to stay in room 207 and get the 3%. If more needed would probably move to ICU.
[2023-02-20 19:00] VITALS: O2SAT 96
[2023-02-20 20:48] VITALS: BP 126/85; PULSE 108; RESP 17; TEMP 36.3; O2SAT 96
[2023-02-20] MEDS: TRAZODONE 50 MG TABLET 100 MG PO (21:57)
[2023-02-20 22:32] LABS: Sodium 119 mmol/L (137-145)
[2023-02-20] MEDS: SENNOSIDES 8.6 MG TABLET 17.2 MG PO (22:45)
[2023-02-21] VITALS (7 sets, daily range): BP systolic 120–131; BP diastolic 72–91; PULSE 85–107; RESP 17–20; TEMP 36.1–36.3; O2SAT 93–96
[2023-02-21 00:30] LABS: BUN Creatinine Ratio 35.8 (6-22); Blood Urea Nitrogen 43 mg/dL (7-17); Calcium 8.7 mg/dL (8.4-10.2); Carbon Dioxide 28 mmol/L (22-32); Chloride 86 mmol/L (98-107); Estimated Glomerular Filt Rate 49 mL/min (>60); Glucose 91 mg/dL (80-110); HEMOLYSIS < 15 (0-50)
[2023-02-21 00:31] LABS: Potassium 5.8 mmol/L (3.4-5.1)
[2023-02-21 00:33] LABS: Sodium 119 mmol/L (137-145)
[2023-02-21] MEDS: PROCHLORPERAZINE 10 MG/2 ML VIAL 5 MG IV (05:05)
[2023-02-21] MEDS: HYDROMORPHONE 0.5 MG INJ IV ×4 (05:05→19:54)
[2023-02-21] MEDS: SODIUM CHLORIDE 0.9% FLUSH 10 ML IV ×3 (05:07→22:00)
[2023-02-21 06:12] LABS: Blood Urea Nitrogen 43 mg/dL (7-17); Calcium 8.8 mg/dL (8.4-10.2); Carbon Dioxide 23 mmol/L (22-32); Chloride 88 mmol/L (98-107); Estimated Glomerular Filt Rate 58 mL/min (>60); Glucose 82 mg/dL (80-110); HEMOLYSIS 23 (0-50)
[2023-02-21 06:17] LABS: Potassium 5.5 mmol/L (3.4-5.1)
[2023-02-21 06:19] LABS: Sodium 118 mmol/L (137-145)
[2023-02-21] MEDS: polyethylene glycoL 3350 17 GM POWD.PACK PO (09:09)
[2023-02-21] MEDS: GABAPENTIN 300 MG CAPSULE PO ×3 (09:09→21:45)
[2023-02-21] MEDS: APIXABAN 5 MG TABLET PO ×2 (09:09→21:46)
[2023-02-21] MEDS: predniSONE 5 MG TABLET 10 MG PO (09:09)
[2023-02-21] MEDS: VENLAFAXINE ER 75 MG CAP PO (09:09)
[2023-02-21] MEDS: DEXMETHYLPHENIDATE 5 MG 5 EACH PO (09:12)
[2023-02-21] MEDS: SODIUM CHLORIDE 3 % 100 ML 29 ML IV (09:35)
--- NOTE | 2023-02-21 11:01 | CM.DPC ---
DCP Hospice Planning Per MD, ordering continuous medication for pt's sodium and plan is for pt to remain for medical care for 1-2 more days and then d/c home with spouse with [facility]. SW called [facility] intake and updated and they confirm that they spoke to spouse and made plan to open pt to service on Wed02/24/23 between [id number] at their home on [facility]. Currently no DME needs as pt has home oxygen already and plan is for [facility] RN to assess for any DME needs at intake. Plan: SW to follow for likely plan of pt d/c home Wed or via spouse POV prior to [facility] to open on Wed. Kavitha Huff MSW
[2023-02-21 13:21] LABS: BUN Creatinine Ratio 38.3 (6-22); Blood Urea Nitrogen 44 mg/dL (7-17); Carbon Dioxide 27 mmol/L (22-32); Chloride 87 mmol/L (98-107); Estimated Glomerular Filt Rate 52 mL/min (>60); Glucose 110 mg/dL (80-110); HEMOLYSIS < 15 (0-50)
[2023-02-21 13:24] LABS: Potassium 6.2 mmol/L (3.4-5.1)
[2023-02-21 13:25] LABS: Sodium 119 mmol/L (137-145)
[2023-02-21] MEDS: SODIUM CHLORIDE 3 % 500 ML 29 ML IV (13:41)
--- NOTE | 2023-02-21 15:24 | PM.PN.1 ---
Subjective Subjective Interval history: 67 F with metastatic ovarian cancer admitted with dehydration, electrolyte abnormalities including hyponatremia and hyperkalemia. She continues to feel slight nausea, and weakness. We discussed possible options today. She does not wish for transfer to the ICU for higher 3% if sodium not responding. Current goal to go home with hospice, hopefully feeling well with a more normal sodium (goal >125). Started continous 3% as it improves her sodium slowly, max floor rate of 29 cc per hour. Will continue to monitor sodium q6 today given goals of care. They are hopeful to go home with hospice in 1-2 days if sodium improves. We also discussed likelihood that sodium drops again when she gets home, and I asked them to consider what they would do in that situation, and both patient and are thinking they would want to stay home on hospice if that were to occur. Exam Vital Signs (past 8 hours): - 02/21/23 07:38 02/21/23 07:30 Temperature 97.3 F L Pulse Rate 107 H Respiratory Rate 20 Blood Pressure 120/72 Pulse Oximetry 93 94 Oxygen Delivery Method Nasal Cannula Oxygen Flow Rate 4 4 Fraction of Inspired Oxygen 36 Fraction of Inspired Oxygen 36 SaO2/FiO2 Ratio 261 Oxygen Delivery Method Nasal Cannula Oxygen Flow Rate 4 Narrative Exam Narrative: GEN: chronically ill appearing HEENT: dry mocous membranes CV: tachycardic PULM: coarse breath sounds bilaterally, absent breath sounds at bases ABD: firm, tender, no rebound/guarding NEURO: awake, alert, oriented, no focal deficits Objective Labs 02/19/23 06:39 02/21/23 13:00 Labs: Laboratory Results - last 24 hr 02/20/23 02/20/23 02/21/23 16:40 22:09 00:12 Sodium 117 L* 119 L* 119 L* Potassium 6.1 H 5.8 H Chloride 88 L 86 L Carbon Dioxide 19 L 28 BUN 40 H 43 H Creatinine 0.98 1.20 H Estimated GFR > 60 49 L BUN/Creatinine Ratio 40.8 H 35.8 H Glucose 99 91 Calcium 8.8 8.7 02/21/23 02/21/23 05:40 13:00 Sodium 118 L* 119 L* Potassium 5.5 H 6.2 H Chloride 88 L 87 L Carbon Dioxide 23 27 BUN 43 H 44 H Creatinine 1.05 H 1.15 H Estimated GFR 58 L 52 L BUN/Creatinine Ratio 41.0 H 38.3 H Glucose 82 110 Calcium 8.8 9.0 PFSH Social History household members: spouse Smoking Status: Never smoker alcohol intake: current Assessment & Plan Assessment & Plan narrative: 1. Severe hyponatremia, hypovolemic -suspect secondary to poor oral intake -goals of care with patient include fluids. -Sodium fell from 120 to 118 despite continued IV fluids with NS @100 cc/hr, urine sodium rechecked and was <5 consistent with hypovolemia. Discussed further options including fluid boluses or 3% saline with patient, she elected for trial of 3%. After 3%, 20 cc over 5 hours, sodium dropped to 117. Increased to 29 cc per hour with improvement to 119. Dropped after stopping after 2nd 100 cc bag. Will continue continuous infusion for now until she reaches 125 ideally with symptom improvement and then probable transfer home on hospice. Patient does not wish to transfer to the ICU for higher rate infusion of 3% if needed. -may be hypoaldosteronism with combined hyperkalemia, but no acidosis on lab evaluation so more likely hypovolemia at this time. Will send AM cortisol tomorrow AM. 2. Hyperkalemia -suspect secondary to potassium supplementation in setting of DANIAL, or renal dysfunction in setting of malignancy. -stop potassium supplementation -IV fluids as above are within goals of care 3. DANIAL -suspect secondary to hypovolemia -however mets causing hydronephrosis may be contributing, though CT shows only unilateral mild hydronephrosis on the R. -continue IV fluids and trend creatinine, improved slightly today again. 4. Leukocytosis -no clear evidence of infection -procal is normal -suspect secondary to steroids -no indication for antibiotics currently, but low threshold to start 5. Metastatic ovarian cancer with mets to liver, peritoneum, lungs -patient is hospice appropriate and interested in joining hospice, it is apparently opening on Wednesday. Dispo: inpatient, will go home with hospice in 2-3 days hopefully with improved sodium levels. advanced care planning: I have spent 20 minutes involved in the advanced care planning as discussed in the subjective section above. Including discussions with patient, spouse, and care management. CODE: DNR/DNI Proxy: conrad Jara Quality VTE Deep Vein Thrombosis/Pulmonary Embolism Present on Admission: No
[2023-02-21 17:40] LABS: BUN Creatinine Ratio 40.4 (6-22); Blood Urea Nitrogen 46 mg/dL (7-17); Calcium 8.8 mg/dL (8.4-10.2); Carbon Dioxide 27 mmol/L (22-32); Chloride 89 mmol/L (98-107); Estimated Glomerular Filt Rate 52 mL/min (>60); Glucose 100 mg/dL (80-110); HEMOLYSIS < 15 (0-50)
[2023-02-21 17:48] LABS: Potassium 6.5 mmol/L (3.4-5.1); Sodium 119 mmol/L (137-145)
--- NOTE | 2023-02-21 21:29 | PC.NURSE ---
Port accessed by Matt WARE RN d/t limited PIV access. Fluids restarted.
[2023-02-21] MEDS: TRAZODONE 50 MG TABLET 100 MG PO (21:46)
[2023-02-21] MEDS: SENNOSIDES 8.6 MG TABLET 17.2 MG PO (22:14)
[2023-02-21 23:38] LABS: BUN Creatinine Ratio 42.3 (6-22); Blood Urea Nitrogen 47 mg/dL (7-17); Calcium 8.7 mg/dL (8.4-10.2); Carbon Dioxide 26 mmol/L (22-32); Chloride 90 mmol/L (98-107); Estimated Glomerular Filt Rate 54 mL/min (>60); Glucose 90 mg/dL (80-110); HEMOLYSIS 25 (0-50)
[2023-02-21 23:39] LABS: Potassium 5.7 mmol/L (3.4-5.1)
[2023-02-21 23:40] LABS: Sodium 119 mmol/L (137-145)
--- NOTE | 2023-02-22 04:20 | PC.NURSE ---
Around 1930, pt c/o pain to IV on right arm. Upon assessment, IV site was red, swollen, painful to touch and infusion. This IV was removed and fluids paused. See Caitlin lopez RN note for port access.
[2023-02-22] MEDS: PANTOPRAZOLE DR 20 MG TABLET PO (05:06)
[2023-02-22 05:51] LABS: BUN Creatinine Ratio 38.7 (6-22); Blood Urea Nitrogen 46 mg/dL (7-17); Calcium 8.6 mg/dL (8.4-10.2); Carbon Dioxide 27 mmol/L (22-32); Chloride 89 mmol/L (98-107); Estimated Glomerular Filt Rate 50 mL/min (>60); Glucose 79 mg/dL (80-110); HEMOLYSIS < 15 (0-50); Potassium 5.5 mmol/L (3.4-5.1); Sodium 120 mmol/L (137-145)
[2023-02-22 06:28] LABS: Cortisol AM (Before 10AM) 38.2 ug/dL (4.46-22.7)
[2023-02-22 07:00] VITALS: O2SAT 92
--- NOTE | 2023-02-22 07:35 | PM.PN.1 ---
Subjective Subjective Interval history: Long discussion was had about patient's pain and logistics about going home on hospice. 20 minutes was spent with spouse present and they elected to have her dilaudid scheduled q2h instead of PRN. She denies anxiety. Able to have BM yesterday which was the first time in a week. Exam Vital Signs (past 8 hours): Fraction of Inspired Oxygen 36 SaO2/FiO2 Ratio 266 Oxygen Delivery Method Nasal Cannula Oxygen Flow Rate 4 Narrative Exam Narrative: GEN: chronically ill appearing, pleasant HEENT: dry mocous membranes CV: tachycardic PULM: coarse breath sounds bilaterally, absent breath sounds at bases ABD: firm, tender, no rebound/guarding NEURO: awake, alert, oriented, no focal deficits Objective Labs 02/19/23 06:39 02/22/23 05:15 Labs: Laboratory Results - last 24 hr 02/21/23 02/21/23 02/21/23 13:00 17:15 23:15 Sodium 119 L* 119 L* 119 L* Potassium 6.2 H 6.5 H* 5.7 H Chloride 87 L 89 L 90 L Carbon Dioxide 27 27 26 BUN 44 H 46 H 47 H Creatinine 1.15 H 1.14 H 1.11 H Estimated GFR 52 L 52 L 54 L BUN/Creatinine Ratio 38.3 H 40.4 H 42.3 H Glucose 110 100 90 Calcium 9.0 8.8 8.7 Cortisol AM Sample 02/22/23 02/22/23 05:15 05:15 Sodium 120 L Potassium 5.5 H Chloride 89 L Carbon Dioxide 27 BUN 46 H Creatinine 1.19 H Estimated GFR 50 L BUN/Creatinine Ratio 38.7 H Glucose 79 L Calcium 8.6 Cortisol AM Sample 38.2 H PFSH Social History household members: spouse Smoking Status: Never smoker alcohol intake: current Assessment & Plan Assessment & Plan narrative: 1. Severe hyponatremia, hypovolemic -suspect secondary to poor oral intake -goals of care with patient include fluids. -Sodium fell from 120 to 118 despite continued IV fluids with NS @100 cc/hr, urine sodium rechecked and was <5 consistent with hypovolemia. Discussed further options including fluid boluses or 3% saline with patient, she elected for trial of 3%. After 3%, 20 cc over 5 hours, sodium dropped to 117. Increased to 29 cc per hour with improvement to 120. Will continue continuous infusion for now until she reaches 125 ideally with symptom improvement and then probable transfer home on hospice. Patient does not wish to transfer to the ICU for higher rate infusion of 3% if needed. -may be hypoaldosteronism with combined hyperkalemia, but no acidosis on lab evaluation so more likely hypovolemia at this time. Will send AM cortisol tomorrow AM. -urine osm 536 2. Hyperkalemia, improving -suspect secondary to potassium supplementation in setting of DANIAL, or renal dysfunction in setting of malignancy. -stop potassium supplementation -IV fluids as above are within goals of care 3. DANIAL, improving -suspect secondary to hypovolemia -however mets causing hydronephrosis may be contributing, though CT shows only unilateral mild hydronephrosis on the R. -continue IV fluids and trend creatinine, improved slightly today again. 4. Leukocytosis -no clear evidence of infection -procal is normal -suspect secondary to steroids -no indication for antibiotics currently, but low threshold to start 5. Metastatic ovarian cancer with mets to liver, peritoneum, lungs -patient is hospice appropriate and interested in joining hospice, it is apparently opening on Wednesday. -changed dilaudid IV to 0.5 q2h scheduled until 9pm then q3h scheduled until 9am Dispo: inpatient, will go home with hospice on 02/23 CODE: DNR/DNI Proxy: Adilson Griggs, spouse Quality VTE Deep Vein Thrombosis/Pulmonary Embolism Present on Admission: No
[2023-02-22 08:00] VITALS: BP 138/83; PULSE 108; RESP 17; TEMP 36.3; O2SAT 93
[2023-02-22 08:04] VITALS: O2SAT 93
[2023-02-22] MEDS: APIXABAN 5 MG TABLET PO (08:23)
[2023-02-22] MEDS: DEXMETHYLPHENIDATE 5 MG 5 EACH PO (08:23)
[2023-02-22] MEDS: VENLAFAXINE ER 75 MG CAP PO (08:24)
[2023-02-22] MEDS: SENNOSIDES 8.6 MG TABLET 17.2 MG PO (08:24)
[2023-02-22] MEDS: GABAPENTIN 300 MG CAPSULE PO (08:24)
[2023-02-22] MEDS: predniSONE 5 MG TABLET 10 MG PO (08:24)
[2023-02-22] MEDS: SODIUM CHLORIDE 0.9% FLUSH 10 ML IV ×2 (08:24→20:05)
[2023-02-22] MEDS: polyethylene glycoL 3350 17 GM POWD.PACK PO (08:24)
[2023-02-22] MEDS: HYDROMORPHONE 0.5 MG INJ IV ×5 (08:42→20:04)
[2023-02-22] MEDS: SODIUM CHLORIDE 3 % 500 ML 29 ML IV (13:10)
--- NOTE | 2023-02-22 14:39 | CM.DPC ---
DCP Hospice Planning Per MD, had lengthy discussion with pt and spouse and plan is for pt to continue getting medial care today with plan of d/c later tomorrow afternoon/early evening back home to [facility] via spouse POV and [facility] to open following morning 02/24/23 at 1000. SW met bedside with pt and spouse and had long conversation and determined DME needs to be ordered today rather than to wait for Hospice to open and assess as pt quite weak and has not been able to ambulate much. Determination of hospital bed, bedside commode, bedside table, w/c and oxygen concentrator. SW called [facility] and they will order DME today and will be delivered sometime to [facility] tomorrow Tu. SW updated pt and spouse and they will make plans to have a good neighbor be home for DME delivery so spouse can be bedside with pt for MD to round in the morning and to provide transport home in the evening back to [facility]. Spouse and pt confirmed they have a [employer] on [facility] that has been providing PP CG to pt at home and is agreeable to increase her hours with pt at d/c. Spouse aware they may need to hire additional help as needed. Plan: SW to follow for plan of d/c home tomorrow evening via spouse POV and DME to be delivered tomorrow as well and [facility] to open Wed [id number]. VINAY Ho
[2023-02-22 16:07] LABS: Osmolality Urine 536 mOsmol/kg (.)
[2023-02-22 19:00] VITALS: O2SAT 93
[2023-02-22 19:30] VITALS: BP 138/55; PULSE 104; RESP 18; TEMP 36.3; O2SAT 93
[2023-02-22] MEDS: ONDANSETRON 4 MG/2 ML INJ IV (20:04)
[2023-02-22 20:17] VITALS: PULSE 100; RESP 22; O2SAT 93
[2023-02-22] MEDS: ALBUTEROL 2.5 MG/3 ML NEB (ADULT) INH (20:17)
[2023-02-23] MEDS: HYDROMORPHONE 0.5 MG INJ IV ×4 (01:31→14:56)
[2023-02-23] MEDS: SODIUM CHLORIDE 0.9% FLUSH 10 ML IV ×2 (01:31→09:02)
[2023-02-23] MEDS: PANTOPRAZOLE DR 20 MG TABLET PO (05:20)
[2023-02-23] MEDS: SODIUM CHLORIDE 3 % 500 ML 29 ML IV (06:45)
[2023-02-23 07:44] VITALS: O2SAT 91
[2023-02-23 08:00] VITALS: BP 111/80; PULSE 98; RESP 17; TEMP 36.2; O2SAT 91
[2023-02-23 08:45] VITALS: O2SAT 93
[2023-02-23] MEDS: VENLAFAXINE ER 75 MG CAP PO (09:01)
[2023-02-23] MEDS: predniSONE 5 MG TABLET 10 MG PO (09:01)
[2023-02-23] MEDS: APIXABAN 5 MG TABLET PO (09:01)
[2023-02-23] MEDS: polyethylene glycoL 3350 17 GM POWD.PACK PO (09:01)
[2023-02-23] MEDS: GABAPENTIN 300 MG CAPSULE PO ×2 (09:01→14:56)
[2023-02-23] MEDS: PILOCARPINE HCL 5 MG 5 EACH PO (09:02)
[2023-02-23] MEDS: DEXMETHYLPHENIDATE 5 MG 5 EACH PO (09:02)
--- NOTE | 2023-02-23 11:06 | CM.DPC ---
DCP Home with Hospice Per MD, checking pt's morning labs to determine sodium levels and will then meet bedside with pt and spouse for plan of discharge home this evening. SW met bedside with pt and spouse and spouse confirms that he received a call from [employer] and DME to be delivered around 1130 today. Spouse also has friends set up to help get pt back into the home via w/c and their w/c ramp and their assist and planning on [place] the [address] ferry back to [facility] although spouse states that time can be adjusted if needed. SW updated MD and he will meet bedside and confirm d/c to home this evening with [facility] to open tomorrow [id number]. Plan: SW to follow for d/c summary to fax to [facility] when available. VINAY Ho
[2023-02-23 11:34] LABS: Add Manual Diff / Slide Review NO; Basophils Absolute Auto 100 /uL (0-100); Basophils Percent Auto 0.4 % (0-2); Eosinophils Absolute Auto 0 /uL (0-450); Eosinophils Percent Auto 0.1 % (2-4); Hematocrit 43.8 % (36-46); Hemoglobin 14.2 g/dL (12.0-16.0); Lymphocytes Absolute Auto 100 /uL (1100-4500); Lymphocytes Percent Auto 0.4 % (25-40); Mean Corpuscular HGB Conc 32.3 % (30-36); Mean Corpuscular Hemoglobin 31.3 PG (26-34); Mean Corpuscular Volume 96.9 fL (80-100); Monocytes Absolute Auto 800 /uL (0-900); Monocytes Percent Auto 4.6 % (3-14); Neutrophils Absolute Auto 16700 /uL (1500-7000); Neutrophils Percent Auto 94.5 % (50-75); Platelet Count 306 X10^3/uL (150-400); Red Blood Cell Count 4.52 X10^6/uL (4.0-5.2); Red Cell Distribution Width 16.7 % (11.6-14.8); White Blood Cell Count 17.6 X10^3/uL (4.5-11.0)
[2023-02-23 11:47] LABS: BUN Creatinine Ratio 33.8 (6-22); Blood Urea Nitrogen 51 mg/dL (7-17); Calcium 9.1 mg/dL (8.4-10.2); Carbon Dioxide 19 mmol/L (22-32); Chloride 93 mmol/L (98-107); Estimated Glomerular Filt Rate 37 mL/min (>60); Glucose 91 mg/dL (80-110); HEMOLYSIS 18 (0-50); Sodium 120 mmol/L (137-145)
[2023-02-23] MEDS: HYDROMORPHONE 4 MG TABLET PO (12:13)
[2023-02-23] MEDS: ONDANSETRON 4 MG/2 ML INJ IV (12:13)
--- NOTE | 2023-02-23 12:55 | PM.DS.1 ---
History of Present Illness History of Present Illness Date Patient Seen: 02/18/23 Time Patient Seen: 21:00 Chief complaint: GI blockage Narrative: Ms. Cherry is a 67W with PMH metastatic ovarian cancer, chronic respiratory failure on oxygen who presents to the hospital with abdominal discomfort, shortness of breath, malaise, decreased appetite, fatigue. She has known metastatic ovarian cancer, and ultimately stopped any further treatment approximately six weeks ago. She has known mets to multiple organs. She has been referred to hospice and has had informational session, but has not joined hospice. Over the last week she has noted decline in terms worsening nausea and vomiting. She has had subjective constipation. She has felt weak and inability to get out of bed. She is chronically on oxygen at home due to mets from the cancer. She is on steroids chronically In the ED workup was done, vital notable for afebrile, heart rate in the 120s, respiratory rate 20s, blood pressure 120s/70s. Sats 94% on 4L. Labs reviewed and notable for WBC 19.4, hgb 13.8, plts 438. Na 119, k 6.2, BUN 40, creatinine 1.24. Lactate 1.9. Procal 0.04. CTA chest with extensive metastatic disease noted in chest with bilatera pleural effusions, no PE. CT abdomen/pelvis notable for partial obstruction with dilation of proximal jejunal loops, ascites and peritoneal mets, possible liver mets, and right hydronephrosis. She was ordered for IV fluids and admitted for further treatment. She was clear at time of admission she wanted no heroic measures, she was interested in being admitted to hospice. She wanted a short course of fluid resuscitation as it was helping her feel better and wanted to be discharged home soon if able. Discharge Providers Provider Date of admission: 02/18/23 21:45 Discharge Date: 02/23/23 Primary care physician: Sergio Hunt MD Discharge provider: Walter Shearer DO Summary Hospital Course Discharge Diagnosis: 1. Severe hyponatremia, hypovolemic -suspect secondary to poor oral intake -goals of care with patient include fluids. -Sodium fell from 120 to 118 despite continued IV fluids with NS @100 cc/hr, urine sodium rechecked and was <5 consistent with hypovolemia. Discussed further options including fluid boluses or 3% saline with patient, she elected for trial of 3%. After 3%, 20 cc over 5 hours, sodium dropped to 117. Increased to 29 cc per hour with improvement to 120. Will continue continuous infusion for now until symptom improvement and then transfer home on hospice. Patient does not wish to transfer to the ICU for higher rate infusion of 3% if needed. -may be hypoaldosteronism with combined hyperkalemia, but no acidosis on lab evaluation so more likely hypovolemia at this time. -urine osm 536, AM cortisol normal -dc home on hospice 2. Hyperkalemia, improving -suspect secondary to potassium supplementation in setting of DANIAL, or renal dysfunction in setting of malignancy. -stop potassium supplementation -IV fluids as above are within goals of care 3. DANIAL, improving -suspect secondary to hypovolemia -however mets causing hydronephrosis may be contributing, though CT shows only unilateral mild hydronephrosis on the R. -continue IV fluids and trend creatinine 4. Leukocytosis -no clear evidence of infection -procal is normal -suspect secondary to steroids -no indication for antibiotics currently, but low threshold to start 5. Metastatic ovarian cancer with mets to liver, peritoneum, lungs -patient is hospice appropriate and accepts hospice at home, hospice of [facility] to open on 02/24 at 10am -changed dilaudid IV to 0.5 q2h scheduled until 9pm then q3h scheduled until 9am Hospital Course: Admitted for worsening resp failure, hyponatremia, abd pain, constipation and DANIAL with hyperkalemia. Symptoms attritubed to underlying advanced metastatic ovarian cancer. Attempted correcting sodium and potassium. She felt much better on scheduled 0.5mg IV dilaudid every 2 hours. Stable on 4L NC. Discharged home for hospice to open the next day. Patient DNR/DNI. Time Spent with Patient Time spent: Greater than 30 minutes Exam Vital Signs (past 8 hours): - 02/23/23 08:00 02/23/23 07:44 Temperature 97.1 F L Pulse Rate 98 H Respiratory Rate 17 Blood Pressure 111/80 Pulse Oximetry 91 91 Oxygen Delivery Method Nasal Cannula Oxygen Flow Rate 4 4 Fraction of Inspired Oxygen 36 SaO2/FiO2 Ratio 258 Oxygen Delivery Method Nasal Cannula Oxygen Flow Rate 4 Narrative Exam Narrative: GEN: chronically ill appearing, pleasant, intermittently disoriented HEENT: dry mocous membranes CV: tachycardic PULM: coarse breath sounds bilaterally, absent breath sounds at bases ABD: firm, tender, no rebound/guarding NEURO: awake, alert, no focal deficits Objective Labs 02/23/23 11:20 02/23/23 11:20 Labs: Laboratory Results - last 24 hr 02/20/23 02/23/23 02/23/23 10:00 11:20 11:20 WBC 17.6 H RBC 4.52 Hgb 14.2 Hct 43.8 MCV 96.9 D MCH 31.3 MCHC 32.3 RDW 16.7 H Plt Count 306 Neut % (Auto) 94.5 H Lymph % (Auto) 0.4 L Towns % (Auto) 4.6 Eos % (Auto) 0.1 L Baso % (Auto) 0.4 Neut # (Auto) 19279 H Lymph # (Auto) 100 L Towns # (Auto) 800 Eos # (Auto) 0 Baso # (Auto) 100 Sodium 120 L Potassium 6.0 H Chloride 93 L Carbon Dioxide 19 L BUN 51 H Creatinine 1.51 H Estimated GFR 37 L BUN/Creatinine Ratio 33.8 H Glucose 91 Calcium 9.1 Urine Osmolality 536 PFSH Social History household members: spouse Smoking Status: Never smoker alcohol intake: current Discharge Plan Discharge Plan Patient Disposition: Hospice - Home Discharge orders & Medications Prescriptions: Continued gabapentin 300 mg capsule 300 mg PO TID pilocarpine HCl 5 mg tablet 5 mg PO BID prednisone 10 mg tablet 10 mg PO DAILY Patient Comments: take 1 tablet by mouth once daily omeprazole 20 mg Capsule,Delayed Release(Dr/Ec) 20 mg PO DAILY venlafaxine 75 mg capsule,extended release 24hr 75 mg PO DAILY furosemide 40 mg tablet 40 mg PO DAILY potassium chloride 20 mEq tablet,ER particles/crystals 40 meq PO DAILY dexmethylphenidate 10 mg tablet 10 mg PO DAILY Patient Comments: take 1 tablet by mouth every morning with food trazodone 100 mg Tablet 100 mg PO BEDTIME Eliquis 5 mg tablet 5 mg PO DAILY Changed hydromorphone 2 mg tablet 2 mg PO Q2HR PRN (Reason: pain) Qty: 30 0RF Follow up/Referrals: Sergio Hunt MD [Primary Care Provider] - Visit Report/Discharge Packet Instructions: DI for Hyponatremia Stand Alone Forms: Patient Portal/API, Stroke Signs & Symptoms Discharge Data Primary Care Provider: Sergio Hunt Discharges patient from system. Discharge Date/Time: 02/23/23 17:05 Quality VTE Deep Vein Thrombosis/Pulmonary Embolism Present on Admission: No
[2023-02-23] MEDS: SODIUM ZIRCONIUM CYCLOSILICATE 10 GM POWD.PACK PO (13:06)
[2023-02-23] MEDS: SODIUM CHLORIDE 0.9% 500 ML IV (13:06)
--- NOTE | 2023-02-23 16:59 | PC.NURSE ---
Pt is dressed and ready for discharge home with Spouse. Premedicated with dilaudid for travel back to [facility]. Port has been deaccessed per MD order. discharge instructions reviewed with Pt and Spouse, meds returned to Pt. from Pharmacy, and gallo care reviewed with Spouse. Both denied further questions and Pt was discharged to pov via w/c by COMMERCIAL FINANCE ANALYST/RN and assisted with loading into vehicle with Spouse and all belongings.
== END 2023-02-23 17:05 | disposition hospice, home (50) | DRG 641 ==
LOC: ED 18:31 → AC 02-19 05:47
PROVIDERS: Emergency Medicine; Internal Medicine; Student in an Organized Health Care Education/Training Program; Admitting Provider Internal Medicine; Emergency Provider Emergency Medicine; PCP Internal Medicine; Visit Provider Internal Medicine
DX: E87.1 Hypo-osmolality and hyponatremia (principal); N17.9 Acute kidney failure, unspecified; C78.7 Secondary malignant neoplasm of liver and intrahepatic bile duct; C78.00 Secondary malignant neoplasm of unspecified lung; C78.6 Secondary malignant neoplasm of retroperitoneum and peritoneum; C79.60 Secondary malignant neoplasm of unspecified ovary; C56.9 Malignant neoplasm of unspecified ovary; J96.10 Chronic respiratory failure, unspecified whether with hypoxia or hypercapnia; E87.5 Hyperkalemia; E86.0 Dehydration; E86.1 Hypovolemia; D72.829 Elevated white blood cell count, unspecified; K59.00 Constipation, unspecified; Z99.81 Dependence on supplemental oxygen; Z66 Do not resuscitate; Z20.822 Contact with and (suspected) exposure to COVID-19
CPT/HCPCS: 36415; 36591; 71275; 74177; 80048; 80053; 81003; 81015; 82533; 83605; 83690; 83735; 83935; 84145; 84295; 84300; 85025; 87040; 87635; 93005; 94640; 94760; 96374; 96375; 99284; 99285; C9803; J0780; J1170; J2405; J7613

== ENCOUNTER 2023-02-24 00:44 | Emergency (ER) | payer MEDICARE, OTHER, SELFPAY ==
[2023-02-18 22:26] VITALS: BMI 22.3
--- NOTE | 2023-02-24 00:59 | ED_ITS ---
HPI - General Adult General Chief complaint: Altered Mental Status Stated complaint: Mets lung cancer- needs pain control. Time Seen by Provider: 02/24/23 00:51 Source: family () and EMS Mode of arrival: EMS History of Present Illness HPI narrative: Patient is a 59-year-old female. Has known metastatic ovarian cancer. His just discharged from the hospital earlier today after having issues with respiratory distress. She is scheduled to start hospice but that is not until later this morning. Patient's states that last evening she seemed to be fairly calm at home but then there was a episode where he thought that she was yelling out a moaning potentially in pain. He would already given her pain medication and her trazodone to help her sleep. She is on oxygen at home. Patient was unable to provide any HPI given her mental status upon arrival. Patient is a DNR/DNI. Patient's arrives at bedside stating that their goal was comfort for the patient. Related Data Home Medications Medication Instructions Recorded Confirmed apixaban 5 mg tablet (Eliquis) 5 mg PO DAILY 02/18/23 02/18/23 dexmethylphenidate 10 mg tablet 10 mg PO DAILY 02/18/23 02/18/23 furosemide 40 mg tablet 40 mg PO DAILY 02/18/23 02/18/23 gabapentin 300 mg capsule 300 mg PO TID 02/18/23 02/18/23 omeprazole 20 mg capsule,delayed 20 mg PO DAILY 02/18/23 02/18/23 release pilocarpine HCl 5 mg tablet 5 mg PO BID 02/18/23 02/18/23 potassium chloride 20 mEq 40 meq PO DAILY 02/18/23 02/18/23 tablet,extended release(part/cryst) prednisone 10 mg tablet 10 mg PO DAILY 02/18/23 02/18/23 trazodone 100 mg tablet 100 mg PO BEDTIME 02/18/23 02/18/23 venlafaxine 75 mg capsule,extended 75 mg PO DAILY 02/18/23 02/18/23 release 24 hr Previous Rx's Medication Instructions Recorded hydromorphone 2 mg tablet 2 mg PO Q2HR PRN pain #30 tabs 02/23/23 Allergies Allergy/AdvReac Type Severity Reaction Status Date / Time No Known Drug Allergies Allergy Verified 02/19/23 10:53 Review of Systems Review of Systems ROS Unobtainable: Unobtainable due to mental status/LOC Patient History Social History household members: spouse Smoking Status: Never smoker alcohol intake: current Smoking Status: Never smoker alcohol intake frequency: 0-2 drinks per day Substance Use Type: does not use Exam Initial Vital Signs Initial Vital Signs: Vital Signs Temperature 96.2 F L 02/24/23 01:04 Pulse Rate 83 02/24/23 01:04 Respiratory Rate 6 L 02/24/23 01:04 Blood Pressure 52/30 L 02/24/23 01:04 Pulse Oximetry 82 L 02/24/23 01:04 Oxygen Delivery Method Non -Rebreather 02/24/23 01:04 Oxygen Flow Rate 15 02/24/23 01:04 Const General: ill appearing HENMT Head: normal to inspection and normocephalic Resp Auscultation: clear to auscultation bilaterally Cardio Rate: bradycardic GI Inspection: non-distended Palpation: soft Neuro Other: Patient does not answer questions. Potentially squeezed her left hand to command but I could not get her to repeat this. Extrem Other: Patient has a edema bilateral upper extremities Course Vital Signs Vital signs: Vital Signs - 8 hr 02/24/23 01:04 02/24/23 01:30 02/24/23 03:07 Temperature 96.2 F L Pulse Rate 83 68 Respiratory Rate 6 L 10 L 11 L Blood Pressure 52/30 L 51/30 L 43/27 L Pulse Oximetry 82 L 94 Oxygen Delivery Method Non -Rebreather Non -Rebreather Non -Rebreather Oxygen Flow Rate 15 10 10 02/24/23 03:30 Temperature Pulse Rate 0 L Respiratory Rate 0 L Blood Pressure Pulse Oximetry 0 L Oxygen Delivery Method Oxygen Flow Rate Medical Decision Making MDM Narrative Medical decision making narrative: Patient normally is on oxygen by nasal cannula at home over upon EMS arrival they did find her hypoxic and she is now on a non-rebreather at 10 L. Patient is bradycardic. Potentially did respond to command of squeezing her left hand but this was not a robust squeeze and I could not get her to repeat this. She appears to be comfortable here in the emergency department. Patient's arrived here in the ER. He did confirm that the patient did expressed wishes that she did not want to be resuscitated. He agrees that making the patient comfortable is his and her top priority. No pain medication was given here in the emergency department given her presentation. Plan will be is to keep her in here in the emergency department this evening and if the patient survives this evening and hospice is available that we could discharge her back home. At approximately 330 in the morning family members came out stating that there seemed to be change in the patient that she seems to have more problems breathing. I went into evaluate the patient. She was gasping. Her respiratory rate was very low. She still appeared to be very calm. Then became bradycardic and then asystolic. Patient then ceased any respiratory effort. Patient was pronounced at 0330 in the morning. Offered printing bindery assistant services to the family which they declined. Then no other specific request. Discharge Plan Departure Patient Disposition: Clinical Impression: Respiratory failure
[2023-02-24 01:04] VITALS: BP 52/30; PULSE 83; RESP 6; TEMP 35.7; O2SAT 82
--- NOTE | 2023-02-24 01:23 | PC.NURSE ---
Pt appears comfortable at this time. No longer moaning or groaning. Family members at the bedside. Family members aware of signs of distress and to notify staff. Pt's right chest port accessed.
[2023-02-24 01:30] VITALS: BP 51/30; RESP 10; O2SAT 94
[2023-02-24 03:07] VITALS: BP 43/27; PULSE 68; RESP 11
[2023-02-24 03:30] VITALS: PULSE 0; RESP 0; O2SAT 0
--- NOTE | 2023-02-24 03:33 | PC.NURSE ---
Called into pt's room by pt's family member that pt seems to have a decrease in respirations and color change. This RN and MD at the bedside. Pt noted to become bradycardic into asystole. MD confirmed TOD @8080. Family declined personnel counselor at this time.
== END 2023-02-24 08:10 | disposition expired ==
PROVIDERS: Emergency Provider Emergency Medicine; PCP Internal Medicine
DX: J96.90 Respiratory failure, unspecified, unspecified whether with hypoxia or hypercapnia (principal); R00.1 Bradycardia, unspecified
CPT/HCPCS: 99284